=== PATIENT | male | born 1950 | race Caucasian/White ===

== ENCOUNTER 2018-06-23 10:19 | Outpatient (CLI) | payer MEDICARE, MEDICAID, SELFPAY ==
[2018-06-23 13:11] LABS: Anion Gap 7.4 mmol/L (3-11); BUN 21 mg/dL (7-18); CO2 28.6 mmol/L (21.0-32.0); CREATININE 1.34 mg/dL (0.70-1.30); Calcium 9.4 mg/dL (8.5-10.1); Chloride 103 mmol/L (98-107); Estimated GFR 53.17 (mL/min/1.73m2); Glucose 149 mg/dL (70-100); Potassium 4.2 mmol/L (3.5-5.1); Sodium 139 mmol/L (136-145)
[2018-06-23 13:24] LABS: Hemoglobin A1C 7.2 % (4.5-6.2)
== END 2018-06-23 10:39 ==
PROVIDERS: PCP Emergency Medicine; Visit Provider Emergency Medicine
DX: E11.9 Type 2 diabetes mellitus without complications (principal)
CPT/HCPCS: 36415; 80048; 83036

== ENCOUNTER 2020-05-23 14:00 | Outpatient (REF) | payer MEDICARE, SELFPAY ==
[2020-05-23 23:14] LABS: Hemoglobin A1C 7.1 % (<5.7)
[2020-05-23 23:19] LABS: Anion Gap 7.8 mmol/L (3-11); BUN 23 mg/dL (7-18); CO2 29.2 mmol/L (21.0-32.0); CREATININE 1.14 mg/dL (0.70-1.30); Calcium 10.2 mg/dL (8.5-10.1); Calculated LDL 38 mg/dL (<100); Chloride 105 mmol/L (98-107); Cholesterol 143 mg/dL (<200); Glucose 147 mg/dL (74-106); HDL Cholesterol 45 mg/dL (40-60); Potassium 4.1 mmol/L (3.5-5.1); Sodium 142 mmol/L (136-145); Triglyceride 300 mg/dL (<150)
== END 2020-05-23 14:20 ==
LOC: LBN 14:00
PROVIDERS: PCP Emergency Medicine; Visit Provider Emergency Medicine
DX: I10 Essential (primary) hypertension (principal); E11.9 Type 2 diabetes mellitus without complications
CPT/HCPCS: 80048; 80061; 83036

== ENCOUNTER → 2020-06-04 11:20 | Outpatient (BNVA) | payer MEDICARE, SELFPAY | PROVIDERS: PCP Emergency Medicine; Referring Provider Emergency Medicine; Visit Provider Surgery | DX: K42.9 Umbilical hernia without obstruction or gangrene (principal); K43.9 Ventral hernia without obstruction or gangrene; K40.90 Unilateral inguinal hernia, without obstruction or gangrene, not specified as recurrent; E11.9 Type 2 diabetes mellitus without complications; I10 Essential (primary) hypertension; Z79.84 Long term (current) use of oral hypoglycemic drugs | CPT/HCPCS: 99204 ==

== ENCOUNTER 2020-07-06 08:08 | Outpatient (CLI) | payer MEDICARE, SELFPAY ==
[2020-07-07 14:58] LABS: COVID-19 RT-PCR Result NEGATIVE (Negative)
== END 2020-07-06 08:28 ==
PROVIDERS: PCP Emergency Medicine; Visit Provider Surgery
DX: Z11.59 Encounter for screening for other viral diseases (principal); Z01.818 Encounter for other preprocedural examination
CPT/HCPCS: U0003

== ENCOUNTER 2020-07-10 06:09 | Day surgery (SDC) | payer MEDICARE, SELFPAY ==
[2020-07-10] VITALS (8 sets, daily range): BP systolic 101–114; BP diastolic 52–75; PULSE 75–83; RESP 16–22; TEMP 36.3–36.7; O2SAT 93–97
[2020-07-10] MEDS: Lactated Ringers 1,000 ML 80 ML IV (07:00)
--- NOTE | 2020-07-10 07:12 | HPE_ITS ---
Date of service: 07/10/20 Time of Service: 07:12 Assessment and Plan Assessment and plan (1) Incisional hernia: Status: Acute Assessment and plan: The ventral hernias will be repaired by a laparoscopic approach. The procedure and risks of infection, bleeding, seroma, injury to bowel, recurrence discussed. There is a possibility of converting to an open procedure. He should not lift more than 15# for 6 weeks postop. He was advised that smoking confers an increased risk of recurrence. He agrees to proceed. History of Present Illness Narrative: Presents for evaluation of several abdominal wall hernias. He is unsure of the duration but they have been there for years. No pain except when directly pressed. He is tolerating PO without N/V. Has daily BM. 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 No chest pain or SOB. Review of Systems All systems reviewed & are unremarkable except as noted in HPI and below PFSH Medical History Diabetes mellitus (01/21/13) Essential hypertension (10/31/13) Hernia Hyperlipidemia (01/21/13) Smoker Surgical History History of removal of cyst spine Hx of cholecystectomy Social History Smoking/Tobacco Use Status: Current every day Tobacco Type: cigarettes Alcohol Intake: current Alcohol Intake frequency: a few times a week Alcohol ty pe: beer Drug use: Never Substance use type: does not use Details: alcohol: t-3, 6 beers. tobacco: t-1 Do you feel safe at home: Yes Do you feel safe in your relationship?: Yes Meds Home Medications and Allergies Home Medications Medication Instructions Recorded Confirmed Type aspirin [Aspirin Low-Strength] 81 mg PO DAILY tab-cap 01/21/13 07/10/20 History mv,Ca,cqh-lnib-LG-lycopene 1 ea PO DAILY 01/21/13 07/10/20 History [Centrum Ultra Men's Tablet] Test Strips 1 ea MISCELLANEOUS once daily #100 05/31/13 07/10/20 Clinic strip blood-glucose meter [One Touch #1 kit 05/31/13 07/10/20 History Ultramini] lancets #100 ea 05/31/13 07/10/20 History blood sugar diagnostic #100 each 03/07/19 07/10/20 Rx hydrochlorothiazide 12.5 mg tablet 12.5 mg PO DAILY #90 tab-cap 10/19/19 07/10/20 Rx lisinopril 20 mg tablet 20 mg PO DAILY #90 tab-cap 10/19/19 07/10/20 Rx metformin 500 mg tablet 500 mg PO BID #180 tab-cap 10/19/19 07/10/20 Rx simvastatin 40 mg tablet 40 mg PO DAILY #90 tab-cap 04/13/20 07/10/20 Rx amlodipine 10 mg tablet 10 mg PO DAILY #90 tab 06/18/20 07/10/20 Rx Allergies Allergy/AdvReac Type Severity Reaction Status Date / Time aspirin AdvReac Mild upset Verified 07/10/20 06:24 stomach, 325 mg Exam Narrative Exam Narrative: Alert Lungs CTA Heart RRR Abdomen soft, not distended. Several ventral hernias present. Umbilical hernia with about 2cm fascial defect. Incisional hernias times two - one just above umbilicus, slightly to the right and a second epigastric defect. Partially reducible. Results Last Vital Signs Temp 98.1 F 07/10/20 06:30 Pulse 80 07/10/20 06:30 Resp 18 07/10/20 06:30 BP 114/75 07/10/20 06:30 Pulse Ox 97 07/10/20 06:30 COVID-19 Screening Have you,or household,traveled outside [place] in last 14 days?: No Had IN PERSON contact w/suspected or confirmed C-19 person: No
--- NOTE | 2020-07-10 07:34 | W.PM.DSUDISC ---
Discharge Plan Disposition Patient Disposition: HOME Condition: Good Discharge Details Reason For Visit: Laparoscopic incisional hernia repair with mesh Attending Provider: Marie Warren Primary Care Provider: Daniel Zuleta Home Meds and New Rx's Prescriptions: Continued aspirin [Aspirin Low-Strength] 81 MG tablet,chewable 81 mg PO DAILY RF: 0 Centrum Ultra Men's 1 EACH tablet 1 ea PO DAILY RF: 0 (DME) blood-glucose meter [OneTouch UltraMini] 1 EACH kit 1 ea Miscellaneous ONCE Qty: 1 RF: 0 (DME) lancets 1 EACH misc 1 ea Miscellaneous DAILY Qty: 100 RF: 0 TEST STRIPS 1 EACH strip 1 ea Miscellaneous once daily Qty: 100 RF: 3 (DME) OneTouch Verio test strips strip See Dose Instructions .ROUTE .MEDSUPPLY Qty: 100 RF: 1 lisinopril 20 mg tablet 20 mg PO DAILY Qty: 90 RF: 4 metformin 500 mg tablet 500 mg PO BID Qty: 180 RF: 4 hydrochlorothiazide 12.5 mg tablet 12.5 mg PO DAILY Qty: 90 RF: 4 simvastatin 40 mg tablet 40 mg PO DAILY Qty: 90 RF: 3 amlodipine 10 mg tablet 10 mg PO DAILY Qty: 90 RF: 3 Discharge Instructions Additional Instructions: The top bandage can be removed tomorrow. The steri strips will usually stick for about a week. When the edges start to curl up, they can be removed. It is okay to shower tomorrow, the water can run over the steri strips Do not swim or soak in a tub for two weeks Call for any concerns including fever, increased pain, vomiting, incision redness or drainage. Do not lift more than 15 pounds for six weeks. Walking and stairs are fine. Do not drive if on narcotic pain meds or if limited by pain. May use Tylenol alternating with ibuprofen for pain control. Ice is also an option. The maximum dose for Tylenol is 4000 mg/day. May use ibuprofen 800 mg every 8 hours as needed. If concerned about constipation, you may use a stool softener or milk of magnesia. Referrals: Marie Warren MD [ [facility] STAFF PHYSICIAN] - (Return next for a postop check) Macho Montana MD [ [facility] STAFF PHYSICIAN] - (1-2 weeks ) Activity:: Do not lift more than 15 pounds for 6 weeks Remove Dressings/Wound Care:: 24 hours Shower/Bathe:: 24 hours Diet:: As Tolerated Discharge Orders Discharge Orders: Discharge Order (Routine); Ordered 07/10/20 Ordered By: Marie Warren DS: Diagnosis Discharge Diagnosis (1) Incisional hernia: Status: Acute (2) Urinary retention: Status: Acute
[2020-07-10] MEDS: ceFAZolin 2 GM/50 ML BAG IVPB (07:36)
[2020-07-10] MEDS: Lidocaine 1% Multi-Dose 50 ML VIAL (08:03)
[2020-07-10] MEDS: Bupivacaine LIPOSOME/PF 133 MG/10 ML VIAL IJ (10:12)
[2020-07-10] MEDS: Normal Saline 20 ML VIAL (10:12)
[2020-07-10] MEDS: ACETAMINOPHEN 1,000 MG/100 ML BTL 400 MG IVPB (10:49)
[2020-07-10] MEDS: HYDROcodone 5/Acetaminophen 325 TAB PO (12:40)
--- NOTE | 2020-07-10 19:29 | W.PM.OP ---
Operative Note Operative Note DATE OF PROCEDURE: 07/10/20 PRE-OP DIAGNOSIS: Incisional hernia POST-OP DIAGNOSIS: same PROCEDURE: Laparoscopic incisional hernia repair with mesh SURGEON: Marie Warren SENIOR QC TECHNICIAN: Lynn Alvarado ANESTHESIA: GETA and local Indications: This 69-year-old man presents for repair of multiple abdominal wall hernias including one at the umbilicus and several incisional hernias at the site of laparoscopic cholecystectomy incisions. Procedure Description: The patient was placed supine on the operating table and after induction of general anesthetic had his abdomen prepped and draped sterilely. A small incision was made in the left upper quadrant and the abdomen entered under direct visualization with a 5mm port. A CO2 pneumoperitoneum was begun. Inspection of the abdomen revealed omental adhesions to the anterior abdominal wall as well as omentum stuck within the hernias. An additional left upper quadrant 5 mm port was placed and a 12 mm left midabdomen port placed. Using the LigaSure the adhesions were taken down and the hernias reduced. This required pressure externally to help reduce the fat as well as gentle traction internally and use of the LigaSure. As mentioned previously the hernias only contained omentum. Once the hernias were reduced it was apparent there were 4 fascial defects - one at the umbilicus, one just superior to this in a prior incision and then 2 in the epigastric region from a prior incisiona. The distance from the lower fascial edge of the lowest hernia to the upper fascial edge of the upper hernia was 19 cm. The 25.4 cm mesh was selected. I also had a 33 cm mesh but this would not fit in abdomen based on measurements. The laparoscopic echo mesh was selected. 0 Vicryl sutures were placed in 4 quadrants for use as anchoring sutures. The mesh was rolled up and placed in the abdomen through the 12 mm port. This was unrolled with the coated side down. The central balloon tubing was grasped with the suture passer at the midpoint of the fascial defects. The mesh was pulled up against the abdominal wall and the balloon inflated. The locations for the 4 anchoring sutures were marked. A small incision was made at each site after injecting local anesthetic and the O Vicryl sutures pulled up through the stab incisions. The sutures were then tightened so the mesh was against the abdominal wall and held in place with hemostats at the skin level. There was excellent coverage of the fascial defects. The absorbable tacker was used to place an outer ring of tacks. The deflated balloon was removed through the 12 port and a second row of tacks placed alternating with the first and more inner. The abdomen was inspected and there was good hemostasis. The 12 port was removed and the incision closed with an 0 PDS suture x2. All the Vicryl sutures were tied. The this was done after releasing the CO2. I then injected Exparel at all port sites which were closed with a 4 Monocryl subcuticular stitch or with Steri-Strips. He tolerated the procedure well and was stable to recovery. It should be noted that immediately upon entering the abdomen his bladder was very full despite having voided immediately before coming to the operating room. A Frederick catheter was inserted and 2700 cc collected by the end of the case. I discussed this with urology. Dr. Montana feels this is a chronic condition and the Frederick catheter can be removed at the end of the case with follow-up in the urology clinic.
== END 2020-07-10 13:45 | disposition home or self-care (01) ==
PROVIDERS: PCP Emergency Medicine; Visit Provider Surgery
PROC: 0WQF4ZZ Repair Abdominal Wall, Percutaneous Endoscopic Approach (ICD-10-PCS; CPT 49654; principal; 2020-07-10 07:30)
DX: K43.2 Incisional hernia without obstruction or gangrene (principal); I10 Essential (primary) hypertension; E11.9 Type 2 diabetes mellitus without complications
CPT/HCPCS: 49654; NC; C1781; J0131; J0690; J1100; J1885; J2405; J2704

== ENCOUNTER → 2020-07-19 09:58 | Outpatient (BNVA) | payer MEDICARE, SELFPAY | PROVIDERS: PCP Emergency Medicine; Referring Provider Emergency Medicine; Visit Provider Surgery | DX: Z48.815 Encounter for surgical aftercare following surgery on the digestive system (principal); E11.9 Type 2 diabetes mellitus without complications; I10 Essential (primary) hypertension ==

== ENCOUNTER → 2020-08-02 14:17 | Outpatient (BNVA) | payer MEDICARE, SELFPAY | PROVIDERS: PCP Emergency Medicine; Referring Provider Emergency Medicine; Visit Provider Urology | DX: R33.8 Other retention of urine (principal); E11.9 Type 2 diabetes mellitus without complications; I10 Essential (primary) hypertension; Z98.890 Other specified postprocedural states; Z79.84 Long term (current) use of oral hypoglycemic drugs | CPT/HCPCS: 99203; 99214 ==

== ENCOUNTER → 2020-09-11 12:52 | Outpatient (BNVA) | payer MEDICARE, SELFPAY | PROVIDERS: PCP Emergency Medicine; Referring Provider Emergency Medicine; Visit Provider Urology | DX: R33.8 Other retention of urine (principal); E11.9 Type 2 diabetes mellitus without complications; I10 Essential (primary) hypertension | CPT/HCPCS: 99213 ==

== ENCOUNTER → 2020-10-02 11:23 | Outpatient (BNVA) | payer MEDICARE, SELFPAY | PROVIDERS: PCP Emergency Medicine; Referring Provider Emergency Medicine; Visit Provider Surgery | DX: K40.90 Unilateral inguinal hernia, without obstruction or gangrene, not specified as recurrent (principal); Z98.890 Other specified postprocedural states; I10 Essential (primary) hypertension; E11.9 Type 2 diabetes mellitus without complications | CPT/HCPCS: 99213; 99214 ==

== ENCOUNTER → 2020-11-20 10:53 | Outpatient (BNVA) | payer MEDICARE, SELFPAY | PROVIDERS: PCP Emergency Medicine; Referring Provider Emergency Medicine; Visit Provider Surgery | DX: K40.90 Unilateral inguinal hernia, without obstruction or gangrene, not specified as recurrent (principal); I10 Essential (primary) hypertension; E11.9 Type 2 diabetes mellitus without complications | CPT/HCPCS: 99212; 99214 ==

== ENCOUNTER 2020-12-06 23:39 | Emergency (ER) | payer MEDICARE, SELFPAY ==
--- NOTE | 2020-12-06 23:38 | ED.GENADUL_ITS ---
Discharge Plan Disposition Patient Disposition: HOME Condition: Stable Discharge Details Clinical Impression: Right leg swelling Primary Care Provider: Daniel Zuleta ED Provider: Saurabh Sung Home Meds and New Rx's Prescriptions: Continued aspirin [Aspirin Low-Strength] 81 MG tablet,chewable 81 mg PO DAILY RF: 0 (DME) blood-glucose meter [OneTouch UltraMini] 1 EACH kit 1 ea Miscellaneous ONCE Qty: 1 RF: 0 (DME) lancets 1 EACH misc 1 ea Miscellaneous DAILY Qty: 100 RF: 0 TEST STRIPS 1 EACH strip 1 ea Miscellaneous once daily Qty: 100 RF: 3 (DME) OneTouch Verio test strips strip See Dose Instructions .ROUTE .MEDSUPPLY Qty: 100 RF: 1 lisinopril 20 mg tablet 20 mg PO DAILY Qty: 90 RF: 4 metformin 500 mg tablet 500 mg PO BID Qty: 180 RF: 4 hydrochlorothiazide 12.5 mg tablet 12.5 mg PO DAILY Qty: 90 RF: 4 simvastatin 40 mg tablet 40 mg PO DAILY Qty: 90 RF: 3 amlodipine 10 mg tablet 10 mg PO DAILY Qty: 90 RF: 3 Discharge Instructions Additional Instructions: Keep legs elevated. Radiology will contact you in the morning for appointment time to come in for ultrasound to look for blood clot. If any issues overnight especially chest pain, shortness of breath, other concerns return to ED. Will need follow-up with primary care next week regardless. Referrals: Daniel Zuleta, [Primary Care Provider] - Medical Decision Making Given the unilateral swelling must place DVT high on list of differential. Unfortunately no ultrasound available tonight. Will check labs including D- dimer, but likely home with dose of Eliquis and return in the morning for ultrasound. Blood count and platelets normal. Kidney function normal. D-dimer greater than 500 but when age-adjusted is technically negative. However, given that of the labs are fine with no contraindications to anticoagulation will dose with Eliquis tonight and have him return for ultrasound tomorrow morning. Requisition faxed to radiology. Instructions given to patient. Discharged home in good condition. Medical Records Medical records reviewed: Yes I reviewed the patient's medical records. Lab Data Lab results reviewed: Yes I reviewed the patient's lab results. HPI General Mode of arrival: EMS . Date/Time Provider Initiated Documentation: 12/06/20 23:43 . Limitations to Documentation: no limitations . Information obtained by: patient, EMS, RN notes reviewed and old records reviewed . HPI Narrative: Patient presents to ED with right lower extremity swelling. Patient reports that his leg has been swelling for about a week. Initially was minimal now swollen all the way up to the knee. It then pruritic around the ankle and you scratch the area quite a bit. There is no pain. Left ankle and foot are little swollen but that is baseline. No history of clots in the past. No fever, cough, shortness of breath, chest pain. Has become more and more swollen as each day goes by. Decided he needed it checked out tonight and came to ED. Related Data Home Medications Medication Instructions Recorded Confirmed aspirin [Aspirin Low-Strength] 81 mg PO DAILY tab-cap 01/21/13 12/06/20 blood-glucose meter [OneTouch #1 kit 05/31/13 11/20/20 UltraMini] lancets #100 ea 05/31/13 11/20/20 blood sugar diagnostic #100 each 03/07/19 11/20/20 hydrochlorothiazide 12.5 mg tablet 12.5 mg PO DAILY #90 tab-cap 10/19/19 12/06/20 lisinopril 20 mg tablet 20 mg PO DAILY #90 tab-cap 10/19/19 12/06/20 metformin 500 mg tablet 500 mg PO BID #180 tab-cap 10/19/19 12/06/20 simvastatin 40 mg tablet 40 mg PO DAILY #90 tab-cap 04/13/20 12/06/20 amlodipine 10 mg tablet 10 mg PO DAILY #90 tab 06/18/20 12/06/20 Previous Rx's Medication Instructions Recorded blood sugar diagnostic #100 each 03/07/19 hydrochlorothiazide 12.5 mg tablet 12.5 mg PO DAILY #90 tab-cap 10/19/19 lisinopril 20 mg tablet 20 mg PO DAILY #90 tab-cap 10/19/19 metformin 500 mg tablet 500 mg PO BID #180 tab-cap 10/19/19 simvastatin 40 mg tablet 40 mg PO DAILY #90 tab-cap 04/13/20 amlodipine 10 mg tablet 10 mg PO DAILY #90 tab 06/18/20 Allergies Allergy/AdvReac Type Severity Reaction Status Date / Time aspirin AdvReac Mild upset Verified 12/06/20 23:46 stomach, 325 mg Review of Systems Narrative: As documented in HPI otherwise negative as below. Const: no fever, chills, weakness Resp: no cough, SOB, pleuritic pain CV: no CP, diaphoresis, syncope GI: no abdominal pain, nausea, vomiting, diarrhea Neuro: no headache, numbness, focal weakness, confusion PFSH Medical History Diabetes mellitus (01/21/13) Essential hypertension (10/31/13) Hyperlipidemia (01/21/13) Incisional hernia Sciatica (11/16/15) Smoker Umbilical hernia Unspecified dental caries Urinary retention Surgical History History of removal of cyst spine Hx of cholecystectomy S/P laparoscopic hernia repair (~07/10/20) umbilical hernia- Dr. Warren Social History Smoking/Tobacco Use Status: Current every day Tobacco Type: cigarettes Smoking risk assessment performed?: Yes Alcohol Intake: current Alcohol Intake frequency: a few times a week Alcohol type: beer Drug use: Never Substance use type: does not use Details: alcohol: t-3, 6 beers. tobacco: t-1 Current gender identity: male Do you feel safe at home: Yes Do you feel safe in your relationship?: Yes Exam Narrative Exam Narrative: Const: WDWN elderly male in NAD. HEENT: NC/AT. Normal facial exam. Eyes: Normal conjunctiva and sclera. Neck: Supple. Trachea midline. Lungs: Normal respiratory effort. Lungs are clear. Cor: RRR without murmur/gallop. Good radial pulses. GI: Soft and NT.No guarding or rebound. Neuro: A+O x 3. Normal speech, mentation, gait. Cranial nerves II - XII grossly intact. No gross motor or sensory deficit. Ext: No C/C. RLE markedly swollen compared to LLE from the knee down. Mild edema to left ankle and foot. No erythema or tenderness. Dry excoriated skin around the right ankle and mild changes left lateral ankle. No groin adenopathy appreciated.
[2020-12-06 23:42] VITALS: BP 162/99; PULSE 108; RESP 20; TEMP 36.5; O2SAT 96
[2020-12-06 23:48] VITALS: RESP 16
[2020-12-07 00:14] LABS: Abs Immature Grans 0.03 10^3/uL (0.0-0.06); Absolute Basophil Count 0.07 10^3/uL (0.0-0.2); Absolute Eosinophil Count 0.47 10^3/uL (0.0-0.7); Absolute Lymphocyte Count 3.27 10^3/uL (1.2-3.4); Absolute Monocyte Count 1.06 10^3/uL (0.1-0.8); Basophils % 0.7; Eosinophils % 4.8; HCT 40.6 % (40.0-50.0); HGB 13.7 g/dL (13.5-17.5); Immature Grans % 0.3; Lymphocytes % 33.4; MCH 31.1 pg (27.0-33.0); MCHC 33.7 % (32.0-36.0); MCV 92.1 fL (80-95); MPV 9.5 fL (8.0-11.0); Monocytes % 10.8; Nucleated RBC 0 %; Platelet Count 281 10^3/uL (130-400); RBC 4.41 10^6/uL (4.36-5.78); RDW 12.9 % (11.8-14.1); RDW-SD 43.7 fL
[2020-12-07 00:25] LABS: ALT 74 U/L (16-63); AST 28 U/L (15-37); Albumin 4.3 g/dL (3.4-5.0); Alkaline Phosphatase 109 U/L (46-116); Anion Gap 13.4 mmol/L (3-11); BUN 16 mg/dL (7-18); Bilirubin, Total 0.4 mg/dL (0.2-1.0); CO2 25.6 mmol/L (21.0-32.0); CREATININE 1.3 mg/dL (0.70-1.30); Calcium 10.3 mg/dL (8.5-10.1); Chloride 97 mmol/L (98-107); Estimated GFR 54.73 (mL/min/1.73m2); Glucose 136 mg/dL (74-106); Potassium 3.8 mmol/L (3.5-5.1); Sodium 136 mmol/L (136-145); Total Protein 8.4 g/dL (6.4-8.2)
[2020-12-07 00:46] LABS: D-Dimer 566 ng/mlFEU (<500)
[2020-12-07 00:50] VITALS: BP 110/81; PULSE 80; RESP 14; O2SAT 95
[2020-12-07] MEDS: Apixaban 5 MG TAB 10 MG PO (01:03)
== END 2020-12-07 01:08 | disposition home or self-care (01) ==
PROVIDERS: Emergency Provider Emergency Medicine; PCP Emergency Medicine
DX: R60.0 Localized edema (principal)
CPT/HCPCS: 36415; 80053; 99283; 85025; 85379; 93971

== ENCOUNTER 2020-12-07 13:42 | Outpatient (CLI) | payer MEDICARE, SELFPAY ==
--- NOTE | 2020-12-07 | DI.US_ITS ---
EXAM: US LOWER EXTREMITY VENOUS RT CLINICAL HISTORY: RLE SWELLING. TECHNIQUE: Lower extremity venous ultrasound performed using grayscale, color-flow, and spectral Do ppler analysis. COMPARISON: No exams were available for comparison FINDINGS: The common femoral, femoral and popliteal veins demonstrate normal compressibility, augmentation, and color Doppler. The posterior tibial veins are patent. No saphenous vein thrombosis or other superfi cial venous thrombosis is seen. No hematoma or Cruz's cyst is seen. IMPRESSION: Negative right lower extremity ultrasound. No evidence of DVT. DATA REPOSITORY:
== END 2020-12-07 14:02 ==
PROVIDERS: PCP Emergency Medicine; Visit Provider Emergency Medicine
DX: R22.41 Localized swelling, mass and lump, right lower limb (principal)
CPT/HCPCS: 93971

== ENCOUNTER 2020-12-18 14:00 | Outpatient (REF) | payer MEDICARE, SELFPAY ==
[2020-12-18 21:34] LABS: Hemoglobin A1C 7.1 % (<5.7)
== END 2020-12-18 14:01 | disposition home or self-care (01) ==
LOC: LBN 14:00
PROVIDERS: PCP Emergency Medicine; Visit Provider Emergency Medicine
DX: E11.9 Type 2 diabetes mellitus without complications (principal)
CPT/HCPCS: 83036

== ENCOUNTER 2021-05-17 09:35 | Day surgery (SDC) | payer MEDICARE, SELFPAY ==
[2021-05-17] MEDS: Tropicam./Phenyleph. (1/2.5%) 5 ML BTL OD ×3 (10:09→10:24)
[2021-05-17 10:16] VITALS: BP 129/89; PULSE 77; RESP 16; TEMP 36.2; O2SAT 96
--- NOTE | 2021-05-17 10:35 | ANES.PREOP_ITS ---
General Info Date of Service Date Performed: 05/17/21 Height: 6 ft Weight: 86.5 kg Body Mass Index (BMI): 25.8 Surgical Procedure: Operation Date: 05/17/21 12:40 Proposed Procedures Side Surgeon p Cataract Extraction with IOL Implant Right Shane Aburto MD Meds Allergies and Home Medications Allergies Allergy/AdvReac Type Severity Reaction Status Date / Time aspirin AdvReac Mild upset Verified 05/17/21 10:12 stomach, 325 mg Home Medication Medication Instructions Recorded aspirin [Aspirin Low-Strength] 81 mg PO DAILY tab-cap 01/21/13 blood-glucose meter [OneTouch #1 kit 05/31/13 UltraMini] blood sugar diagnostic #100 each 12/11/20 blood-glucose meter #1 ea 12/17/20 lancets 28 gauge #100 ea 12/19/20 lisinopril 20 mg tablet 20 mg PO DAILY #90 tab-cap 01/16/21 metformin 500 mg tablet 500 mg PO BID #180 tab-cap 01/16/21 amlodipine 2.5 mg tablet 2.5 mg PO DAILY #90 tab 03/06/21 hydrochlorothiazide 25 mg tablet 25 mg PO QAM #90 tab 03/19/21 simvastatin 40 mg tablet 40 mg PO DAILY #90 tab-cap 04/15/21 Current Visit Medications: Current Medications Generic Name Dose Route Start Last Admin Trade Name Freq PRN Reason Stop Dose Admin Acetaminophen 1,000 mg 05/17/21 06:00 Acetaminophen 500 Mg Tab PO Q4H PRN PRN Miscellaneous Medication 0 ml 05/17/21 06:00 Prednisolone 1%, Moxifloxacin 0.5%, Nepafenac 0.1% 5ml Btl OD [facility] Miscellaneous Medication 0 ml 05/17/21 06:00 05/17/21 10:24 Tropicam./Phenyleph. (1/2.5%) 5 Ml Btl OD 1 drp [facility] Administration Tetracaine HCl 0 ml 05/17/21 06:00 Tetracaine 0.5% 4 Ml Btl OD [facility] PFSH Active Problems Active Problems: Problem Status Onset Code Diabetic retinopathy ~01/2021 E11.319 Right leg swelling M79.89 Left inguinal hernia K40.90 Colonoscopy refused 08/21/16 Z53.20 Diabetes mellitus 05/03/13 E11.9 Essential hypertension 10/31/13 I10 Hyperlipidemia 01/21/13 E78.5 Smoker F17.200 Medical History Medical History Diabetes mellitus (01/21/13) Essential hypertension (10/31/13) Hyperlipidemia (01/21/13) Incisional hernia Sciatica (11/16/15) Smoker Umbilical hernia Unspecified dental caries Urinary retention Surgical History Surgical History History of removal of cyst spine Hx of cholecystectomy S/P laparoscopic hernia repair (~07/10/20) umbilical hernia- Dr. Warren Tobacco Smoking/Tobacco Use Status: Current every day Tobacco Type: cigarettes Smoking cigarettes per day: 10 Alcohol Alcohol Intake: current Alcohol intake frequency: a few times a week Alcohol type: beer Substance Use Substance use: Never Substance use type: does not use Details: alcohol: t-3, 6 beers. tobacco: t-1 Vital Signs and Lab Results Vital Signs Most Recent Vital Signs in EMR: Most Recent Vital Signs Temp Pulse Resp BP Pulse Ox 36.2 C L 77 16 129/89 96 05/17/21 10:16 05/17/21 10:16 05/17/21 10:16 05/17/21 10:16 05/17/21 10:16 Point of Care Results Point of Care Results: Finger Stick Blood Glucose 146 05/17/21 10:28 Lab Results Blood Type / Crossmatch: No Data to Display Complete Blood Count: No Data to Display Complete Metabolic Panel: No Data to Display Liver Function Panel: No Data to Display Coagulation Panel: No Data to Display Cardiac Panel: No Data to Display Arterial Blood Gas: No Data to Display Venous Blood Gas: No Data to Display Pancreas Panel: No Data to Display Thyroid Panel: No Data to Display Infectious Disease: No Data to Display Blood Cultures: No Data to Display Toxicology Panel: No Data to Display Anesthesia Assessment and Plan Anesthesia History Personal History: No History of Anesthesia Complications Family History: No Family History of Anesthesia Complications Exercise Tolerance Exercise Tolerance: Metabolic Equivalents>4 Pertinent Negatives Pertinent Negatives: No Symptoms of GERD, No Major Cardiovascular Symptoms or Complaints, No Major Pulmonary Symptoms or Complaints and No History of CVA/TIA Cardiac & Pulmonary Exam Cardiac Exam: Normal S1/S2 Heart Sounds Pulmonary Exam: Clear Bilateral Breath Sounds Airway Exam Known Difficult Airway: No Mallampati Class: 2 Mouth Opening: Normal (> 3cm) Thyromental Distance: Greater than 3 cm Neck Range of Motion: Full ROM Neck Circumference: Normal Teeth Condition: Edentulous ASA Classification ASA Score: ASA 2 Emergency Case?: No NPO Status NPO Status: NPO Clears >2 hours, Solids >8 hours Anesthesia Plan Resuscitation Status: Full Code Anesthesia Technique: General Anesthesia Airway Planned: Natural Airway Monitors Used: Standard Monitors
[2021-05-17 10:38] VITALS: BMI 25.8
[2021-05-17] MEDS: Tetracaine 0.5% 4 ML BTL OD (11:28)
[2021-05-17] MEDS: Duovisc Viscoelastic System EACH 1 EACH (11:29)
[2021-05-17] MEDS: Balanced Salt Soln.-PLUS 500 ML BAG (11:29)
[2021-05-17] MEDS: Lidocaine 2% Jelly 6 ML SYR (11:30)
[2021-05-17] MEDS: Trypan Blue 0.06% 0.5 ML SYR (11:30)
[2021-05-17] MEDS: Lidocaine 1% Pres-Free 5 ML VIAL (11:30)
[2021-05-17] MEDS: Povidone-Iodine Ophth 30 ML BTL (11:32)
[2021-05-17 11:40] VITALS: BP 143/96; PULSE 82; RESP 18; TEMP 36.7; O2SAT 97
--- NOTE | 2021-05-17 11:42 | W.PM.DSUDISC ---
Discharge Plan Disposition Patient Disposition: HOME Condition: Good Discharge Details Attending Provider: Shane Aburto Primary Care Provider: Daniel Zuleta Home Meds and New Rx's Prescriptions: No Action amlodipine 2.5 mg tablet 2.5 mg PO DAILY Qty: 90 RF: 3 (DME) OneTouch Verio test strips Strip See Dose Instructions .ROUTE .MEDSUPPLY Qty: 100 RF: 3 aspirin [Aspirin Low-Strength] 81 MG tablet,chewable 81 mg PO DAILY RF: 0 (DME) blood-glucose meter [OneTouch UltraMini] 1 EACH kit 1 ea Miscellaneous ONCE Qty: 1 RF: 0 TEST STRIPS 1 EACH strip 1 ea Miscellaneous once daily Qty: 100 RF: 3 (DME) blood-glucose meter [OneTouch Verio Meter] Misc See Rx Instructions .ROUTE .MEDSUPPLY Qty: 1 RF: 1 (DME) lancets 28 gauge misc 1 ea Miscellaneous DAILY Qty: 100 RF: 4 lisinopril 20 mg tablet 20 mg PO DAILY Qty: 90 RF: 4 metformin 500 mg tablet 500 mg PO BID Qty: 180 RF: 4 hydrochlorothiazide 25 mg tablet 25 mg PO QAM Qty: 90 RF: 3 simvastatin 40 mg tablet 40 mg PO DAILY Qty: 90 RF: 3 Discharge Instructions Stand Alone Forms: Post-op Topical Cataract, Nicho Lozano (DSU) Discharge Orders Discharge Orders: Discharge Order (Routine); Ordered 05/17/21 Ordered By: Shane Aburto DS: Diagnosis Discharge Diagnosis (1) Nuclear sclerotic cataract of right eye: Status: Resolved (2) Posterior subcapsular age-related cataract, right eye: Status: Resolved
--- NOTE | 2021-05-17 11:44 | W.PM.OP ---
Date of service: 05/17/21 Time of Service: 11:44 Operative Note Operative Note DATE OF PROCEDURE: 05/17/21 PRE-OP DIAGNOSIS: Nuclear/posterior subcapsular cataract, right eye Poor red reflex, right eye secondary to cataract Exudative ARMD, right eye POST-OP DIAGNOSIS: same PROCEDURE: Cataract extraction using phacoemulsification with intraocular lens implantation, right eye, using capsular staining with Vision Blue SURGEON: Shane Aburto ANESTHESIA TYPE: Local By Surgeon and MAC Refer to Anesthesia Record PATHOLOGY: none sent COMPLICATIONS: None Patient was transported to: same day Patient's condition: stable Implants: Chap[employer] / [employer] Tecnis [id number] Indications: Progressive visual loss due to cataract, right eye Procedure Description: CATARACT SURGERY OPERATIVE REPORT PREOPERATIVE DIAGNOSIS: 1. Nuclear/posterior subcapsular cataract, right eye 2. Poor red reflex secondary to #1 POSTOPERATIVE DIAGNOSIS: Same OPERATION: 1. Cataract extraction using phacoemulsification with posterior chamber intraocular lens implant, right eye. 2. Capsular staining with Vision Blue IOL: IOL Generating Station Mechanic/Model: Chapito & Chapito / JOANNE Tecnis [id number] IOL Power: + 20.5 diopters IOL Serial Number: [id number] Optic Diameter: 6.0mm Haptic/Overall Diameter: 13.0mm PHACO INFO: Titi [employer] Vision System with OZil and Active Fluidics Cumulative Dispersed Energy (CDE): 12.13 seconds SURGEON: Shane Aburto MD, JOELLEN ANESTHESIA: Monitored Anesthesia Care (MAC), with local sub-tenon's anesthetic infiltration COMPLICATIONS: None SPECIMENS: None INDICATIONS FOR PROCEDURE: The patient is a 70-year-old gentleman with history of exudative ARMD of the right eye. He also has a significant nuclear and posterior subcapsular cataract. 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 PROCEDURE: The correct surgical eye was identified and marked as the right eye and the pupil was dilated in the preoperative area using mydriatics and cycloplegics. The dilated pupil size was 6.5 mm. He elected to proceed without oral sedation. The patient was brought to the operating room where cardiopulmonary monitoring was instituted and surgical time-out was performed, confirming the correct operative eye and IOL power. Topical anesthesia was administered and ophthalmic povidone-iodine 5% was instilled into the conjunctival fornices. Lidocaine gel was applied to the cornea and the ac-ocular area was prepped with Betadine 10% solution and draped in the usual sterile fashion for intraocular surgery, including an aperture drape. A Tegaderm transparent film dressing was cut in half and used to cover the lashes and lid margins. Care was taken to sequester the lashes and lid margins under the Tegaderm dressing. A lid speculum was placed between the lids of the operative eye and the Ana Lilia-Molly operating microscope was maneuvered into position. Petra scissors were then used to make a conjunctival buttonhole approximately 6mm posterior to the limbus in the inferonasal quadrant. Blunt dissection was carried out to expose bare sclera, and a blunt-tipped sub-tenon?s anesthesia cannula was introduced and passed posteriorly along the globe where non-preserved plain lidocaine was injected into posterior sub-Tenon?s space. A sideport knife was used to make a paracentesis port inferotemporally. Intraocular phenylephrine/lidocaine was injected into the anterior chamber. Air was injected into the anterior chamber, followed by Vision Blue, which was painted over the anterior capsule and then irrigated out with BSS. The anterior chamber was filled with viscoelastic. A 2.4mm keratome knife was used to create a half-thickness groove at the limbus and then to construct a three-plane near-clear corneal tunnel extending 2.0mm into clear cornea superiortemporally. A flap was raised on the anterior capsule and capsulorhexis forceps were used to complete a continuous curvilinear capsulorhexis of 5.5 mm. Balanced salt solution was then used to perform cortical cleaving hydrodissection and nuclear hydrodelineation until the lens could be freely rotated within the capsular bag. The lens nucleus was then disassembled and removed within the capsular bag and iris plane using phacoemulsification. Residual cortical material was removed using the I/A handpiece. The posterior capsule was carefully polished to remove as much residual lens epithelial cells as safely possible. The capsular bag was then inflated and the anterior chamber deepened with viscoelastic. The lens implant described above was inserted into the capsular bag using the JOANNE [place] Injector. A Kuglen hook was used to dial the IOL into position. Residual viscoelastic was then removed first from posterior to the IOL, then from the anterior chamber using the I/A handpiece. The lens implant was noted to center nicely within the capsular bag. The incisions were stromally hydrated, and the anterior chamber was reformed using BSS. Then 0.5cc of moxifloxacin 1.0mg/ml were injected into the capsular bag and anterior chamber. The incisions were checked with a Weck spear and found to be secure. Several drops of ophthalmic povidone-iodine 5% were then applied to the eye followed by two drops of Imprimis combination prednisolone/moxifloxacin/nepafenac solution. The drapes were removed and a clear plastic protective eye shield was placed over the eye. The patient was then returned to Same Day Surgery in stable condition.
--- NOTE | 2021-05-17 11:56 | W.ANESPOSTOP ---
Postoperative Evaluation Date, Time and Location Date Performed: 05/17/21 Time Performed: 11:41 Patient Location: Day Surgery Unit Vital Signs Most Recent Imported Vital Signs: Most Recent Vital Signs Temp Pulse Resp BP Pulse Ox 36.7 C 82 18 143/96 H 97 05/17/21 11:40 05/17/21 11:40 05/17/21 11:40 05/17/21 11:40 05/17/21 11:40 Pain Score Most Recent Pain Score: Most Recent Pain Score Pain Level 0 05/17/21 11:40 Assessment Mental Status: Awake (Alert & Oriented to Patient Baseline) Airway and Respiratory Function: Patent airway with normal (patient baseline) respiratory exam Cardiovascular Function: Hemodynamically Stable Hydration Status: Adequately Hydrated Nausea & Vomiting: No Nausea or Vomiting Pain: Pt. Denies Any Pain Peripheral Nerve Block: Patient did not receive a nerve block
--- NOTE | 2021-05-17 12:10 | W.ANESPOSTOP ---
Postoperative Evaluation Date, Time and Location Date Performed: 05/17/21 Time Performed: 11:42 Patient Location: Day Surgery Unit Vital Signs Most Recent Imported Vital Signs: Most Recent Vital Signs Temp Pulse Resp BP Pulse Ox 36.7 C 82 18 143/96 H 97 05/17/21 11:40 05/17/21 11:40 05/17/21 11:40 05/17/21 11:40 05/17/21 11:40 Most Recent Vital Signs Temp Pulse Resp BP Pulse Ox 36.7 C 82 18 143/96 H 97 05/17/21 11:40 05/17/21 11:40 05/17/21 11:40 05/17/21 11:40 05/17/21 11:40 Pain Score Most Recent Pain Score: Most Recent Pain Score Pain Level 0 05/17/21 11:40 Assessment Mental Status: Awake (Alert & Oriented to Patient Baseline) Airway and Respiratory Function: Patent airway with normal (patient baseline) respiratory exam Cardiovascular Function: Hemodynamically Stable Hydration Status: Adequately Hydrated Nausea & Vomiting: No Nausea or Vomiting Pain: Pt. Denies Any Pain Peripheral Nerve Block: Patient did not receive a nerve block
== END 2021-05-17 12:13 | disposition home or self-care (01) ==
PROVIDERS: PCP Emergency Medicine; Visit Provider Ophthalmology
PROC: (CPT 66984; principal; 2021-05-17 12:30)
DX: H25.041 Posterior subcapsular polar age-related cataract, right eye (principal); H35.3210 Exudative age-related macular degeneration, right eye, stage unspecified; E11.9 Type 2 diabetes mellitus without complications
CPT/HCPCS: 66984; V2632

== ENCOUNTER 2021-05-29 03:33 | Outpatient (CLI) | payer MEDICARE, MEDICAID, SELFPAY ==
[2021-05-29 13:05] LABS: Source Nasal/Nares
[2021-05-29 17:56] LABS: COVID-19 PCR Negative (Negative)
== END 2021-05-29 03:34 | disposition home or self-care (01) ==
LOC: LBO 03:33
PROVIDERS: PCP Emergency Medicine; Visit Provider Ophthalmology
DX: Z20.822 Contact with and (suspected) exposure to COVID-19 (principal); Z01.818 Encounter for other preprocedural examination
CPT/HCPCS: 87635

== ENCOUNTER 2021-05-31 06:30 | Day surgery (SDC) | payer MEDICARE, SELFPAY ==
[2021-05-31] MEDS: Tropicam./Phenyleph. (1/2.5%) 5 ML BTL OS ×3 (06:45→06:58)
[2021-05-31 06:47] VITALS: BP 149/88; PULSE 81; RESP 16; TEMP 36.4; O2SAT 99
--- NOTE | 2021-05-31 07:08 | ANES.PREOP_ITS ---
General Info Date of Service Date Performed: 05/31/21 Height: 6 ft Weight: 88.2 kg Body Mass Index (BMI): 26.4 Surgical Procedure: Operation Date: 05/31/21 07:40 Proposed Procedures Side Surgeon p Cataract Extraction with IOL Implant possible Avastin Injection Left Shane Aburto MD Meds Allergies and Home Medications Allergies Allergy/AdvReac Type Severity Reaction Status Date / Time aspirin AdvReac Mild upset Verified 05/31/21 06:41 stomach, 325 mg Home Medication Medication Instructions Recorded aspirin [Aspirin Low-Strength] 81 mg PO DAILY tab-cap 01/21/13 blood-glucose meter [OneTouch #1 kit 05/31/13 UltraMini] blood sugar diagnostic #100 each 12/11/20 blood-glucose meter #1 ea 12/17/20 lancets 28 gauge #100 ea 12/19/20 lisinopril 20 mg tablet 20 mg PO DAILY #90 tab-cap 01/16/21 metformin 500 mg tablet 500 mg PO BID #180 tab-cap 01/16/21 amlodipine 2.5 mg tablet 2.5 mg PO DAILY #90 tab 03/06/21 hydrochlorothiazide 25 mg tablet 25 mg PO QAM #90 tab 03/19/21 simvastatin 40 mg tablet 40 mg PO DAILY #90 tab-cap 04/15/21 Current Visit Medications: Current Medications Generic Name Dose Route Start Last Admin Trade Name Freq PRN Reason Stop Dose Admin Acetaminophen 1,000 mg 05/31/21 06:00 Acetaminophen 500 Mg Tab PO Q4H PRN PRN Miscellaneous Medication 0 ml 05/31/21 06:00 Prednisolone 1%, Moxifloxacin 0.5%, Nepafenac 0.1% 5ml Btl OS DIRECTED [facility] Miscellaneous Medication 0 ml 05/31/21 06:00 05/31/21 06:58 Tropicam./Phenyleph. (1/2.5%) 5 Ml Btl OS 1 drp DIRECTED FAVIO Administration Tetracaine HCl 0 ml 05/31/21 06:00 Tetracaine 0.5% 4 Ml Btl OS DIRECTED [facility] PFSH Active Problems Active Problems: Problem Status Onset Code Colonoscopy refused 08/21/16 Z53.20 Left inguinal hernia K40.90 Right leg swelling M79.89 Diabetic retinopathy ~01/2021 E11.319 Nuclear sclerotic cataract of right eye H25.11 Posterior subcapsular age-related cataract, right eye H25.041 Nuclear sclerotic cataract of left eye H25.12 Cortical cataract of left eye H26.9 Diabetes mellitus 01/21/13 E11.9 Essential hypertension 10/31/13 I10 Hyperlipidemia 01/21/13 E78.5 Smoker F17.200 Medical History Medical History Diabetes mellitus (01/21/13) Essential hypertension (10/31/13) Hyperlipidemia (01/21/13) Incisional hernia Sciatica (11/16/15) Smoker Umbilical hernia Unspecified dental caries Urinary retention Surgical History Surgical History (Updated 05/31/21 @ 06:41 by Carmen Mireles) History of removal of cyst spine Hx of cataract surgery Hx of cholecystectomy S/P laparoscopic hernia repair (~07/10/20) umbilical hernia- Dr. Warren Tobacco Smoking/Tobacco Use Status: Current every day Tobacco Type: cigarettes Smoking cigarettes per day: 10 Alcohol Alcohol Intake: current Alcohol intake frequency: a few times a week Alcohol type: beer Substance Use Substance use: Never Substance use type: does not use Details: alcohol: t-3. tobacco: 3 today Vital Signs and Lab Results Vital Signs Most Recent Vital Signs in EMR: Most Recent Vital Signs Temp Pulse Resp BP Pulse Ox 36.4 C L 81 16 149/88 H 99 05/31/21 06:47 05/31/21 06:47 05/31/21 06:47 05/31/21 06:47 05/31/21 06:47 Point of Care Results Point of Care Results: Finger Stick Blood Glucose 115 05/31/21 06:55 Lab Results Blood Type / Crossmatch: No Data to Display Complete Blood Count: No Data to Display Complete Metabolic Panel: No Data to Display Liver Function Panel: No Data to Display Coagulation Panel: No Data to Display Cardiac Panel: No Data to Display Arterial Blood Gas: No Data to Display Venous Blood Gas: No Data to Display Pancreas Panel: No Data to Display Thyroid Panel: No Data to Display Infectious Disease: Coronavirus (COVID-19)(PCR) Negative (Negative) 05/29/21 11:02 05/29/21 Coronavirus 2019 Source Nasal/Nares 05/29/21 11:02 05/29/21 Blood Cultures: No Data to Display Toxicology Panel: No Data to Display Anesthesia Assessment and Plan Anesthesia History Personal History: No History of Anesthesia Complications Family History: No Family History of Anesthesia Complications Exercise Tolerance Exercise Tolerance: Metabolic Equivalents>4 Pertinent Negatives Pertinent Negatives: No Symptoms of GERD, No Major Cardiovascular Symptoms or Complaints and No Major Pulmonary Symptoms or Complaints Cardiac & Pulmonary Exam Cardiac Exam: Normal S1/S2 Heart Sounds Pulmonary Exam: Clear Bilateral Breath Sounds Airway Exam Known Difficult Airway: No Mallampati Class: 2 Mouth Opening: Normal (> 3cm) Thyromental Distance: Greater than 3 cm Neck Range of Motion: Full ROM Neck Circumference: Normal Teeth Condition: Edentulous ASA Classification ASA Score: ASA 2 Emergency Case?: No NPO Status NPO Status: NPO Clears >2 hours, Solids >8 hours Anesthesia Plan Resuscitation Status: Full Code Anesthesia Technique: MAC Anesthesia Airway Planned: Natural Airway Monitors Used: Standard Monitors
[2021-05-31 07:15] VITALS: BMI 26.4
[2021-05-31] MEDS: Tetracaine 0.5% 4 ML BTL OS (07:28)
[2021-05-31] MEDS: Povidone-Iodine Ophth 30 ML BTL (07:28)
[2021-05-31] MEDS: Lidocaine 2% Jelly 6 ML SYR (07:28)
[2021-05-31] MEDS: Lidocaine 1% Pres-Free 5 ML VIAL (07:30)
[2021-05-31] MEDS: Balanced Salt Soln.-PLUS 500 ML BAG (07:30)
[2021-05-31] MEDS: Duovisc Viscoelastic System EACH 1 EACH (07:30)
[2021-05-31 07:53] VITALS: BP 148/84; PULSE 75; RESP 18; TEMP 36.5; O2SAT 96
--- NOTE | 2021-05-31 07:57 | W.PM.DSUDISC ---
Discharge Plan Disposition Patient Disposition: HOME Condition: Good Discharge Details Attending Provider: Shane Aburto Primary Care Provider: Daniel Zuleta Home Meds and New Rx's Prescriptions: No Action amlodipine 2.5 mg tablet 2.5 mg PO DAILY Qty: 90 RF: 3 (DME) OneTouch Verio test strips Strip See Dose Instructions .ROUTE .MEDSUPPLY Qty: 100 RF: 3 aspirin [Aspirin Low-Strength] 81 MG tablet,chewable 81 mg PO DAILY RF: 0 (DME) blood-glucose meter [OneTouch UltraMini] 1 EACH kit 1 ea Miscellaneous ONCE Qty: 1 RF: 0 TEST STRIPS 1 EACH strip 1 ea Miscellaneous once daily Qty: 100 RF: 3 (DME) blood-glucose meter [OneTouch Verio Meter] Misc See Rx Instructions .ROUTE .MEDSUPPLY Qty: 1 RF: 1 (DME) lancets 28 gauge misc 1 ea Miscellaneous DAILY Qty: 100 RF: 4 lisinopril 20 mg tablet 20 mg PO DAILY Qty: 90 RF: 4 metformin 500 mg tablet 500 mg PO BID Qty: 180 RF: 4 hydrochlorothiazide 25 mg tablet 25 mg PO QAM Qty: 90 RF: 3 simvastatin 40 mg tablet 40 mg PO DAILY Qty: 90 RF: 3 Discharge Instructions Stand Alone Forms: Post-op Topical Cataract, Nicho Lozano (DSU) Discharge Orders Discharge Orders: Discharge Order (Routine); Ordered 05/31/21 Ordered By: Shane Aburto DS: Diagnosis Discharge Diagnosis (1) Nuclear sclerotic cataract of left eye: Status: Resolved (2) Cortical cataract of left eye: Status: Resolved
--- NOTE | 2021-05-31 07:58 | W.PM.OP ---
Date of service: 05/31/21 Time of Service: 07:58 Operative Note Operative Note DATE OF PROCEDURE: 05/31/21 PRE-OP DIAGNOSIS: Nuclear/cortical cataract, left eye POST-OP DIAGNOSIS: same PROCEDURE: Cataract extraction using phacoemulsification with intraocular lens implant, left eye SURGEON: Shane Aburto ANESTHESIA TYPE: Local By Surgeon and MAC Refer to Anesthesia Record PATHOLOGY: none sent COMPLICATIONS: None Patient was transported to: same day Patient's condition: stable Implants: Chap[employer] and Chap[employer] / [employer] Tecnis [id number] Indications: Progressive decreased vision due to cataract, left eye, with poor red reflex Procedure Description: CATARACT SURGERY OPERATIVE REPORT PREOPERATIVE DIAGNOSIS: 1. Nuclear/cortical cataract, left eye POSTOPERATIVE DIAGNOSIS: Same OPERATION: 1. Cataract extraction using phacoemulsification with posterior chamber intraocular lens implant, left eye. IOL: IOL Piped Buttonhole Machine Operator/Model: Chapito & Chapito / JOANNE Tecnis [id number] IOL Power: + 19.5 diopters IOL Serial Number: [id number] Optic Diameter: 6.0 mm Haptic/Overall Diameter: 13.0 mm PHACO INFO: Titi [employer]urion Vision System with OZil and Active Fluidics Cumulative Dispersed Energy (CDE): 3.56 seconds SURGEON: Shane Aburto MD, JOELLEN ANESTHESIA: Monitored A [facility] (MAC), with local sub-tenon's anesthetic infiltration COMPLICATIONS: None SPECIMENS: None INDICATIONS FOR PROCEDURE: The patient is a 70-year-old gentleman with history of exudative ARMD of the right eye who has developed bilateral nuclear and cortical cataract. He has already undergone cataract surgery of the right eye. He now presents cataract surgery of his better left eye. PROCEDURE: The correct surgical eye was identified and marked as the left eye and the pupil was dilated in the preoperative area using mydriatics and cycloplegics. The dilated pupil size was 7.0 mm. He elected to proceed without oral sedation. The patient was brought to the operating room where cardiopulmonary monitoring was instituted and surgical time-out was performed, confirming the correct operative eye and IOL power. Topical anesthesia was administered and ophthalmic povidone-iodine 5% was instilled into the conjunctival fornices. Lidocaine gel was applied to the cornea and the ac-ocular area was prepped with Betadine 10% solution and draped in the usual sterile fashion for intraocular surgery, including an aperture drape. A Tegaderm transparent film dressing was cut in half and used to cover the lashes and lid margins. Care was taken to sequester the lashes and lid margins under the Tegaderm dressing. A lid speculum was placed between the lids of the operative eye and the Ana Lilia-Molly operating microscope was maneuvered into position. Petra scissors were then used to make a conjunctival buttonhole approximately 6mm posterior to the limbus in the inferonasal quadrant. Blunt dissection was carried out to expose bare sclera, and a blunt-tipped sub-tenon?s anesthesia cannula was introduced and passed posteriorly along the globe where non-preserved plain lidocaine was injected into posterior sub-Tenon?s space. A sideport knife was used to make a paracentesis port superiorly/superiortemporally. Intraocular phenylephrine/lidocaine was injected int the anterior chamber.. The anterior chamber was filled with viscoelastic. A 2.4mm keratome knife was used to create a half-thickness groove at the limbus and then to construct a three-plane near-clear corneal tunnel extending 2.0mm into clear cornea at the 3:00 position. A flap was raised on the anterior capsule and capsulorhexis forceps were used to complete a continuous curvilinear capsulorhexis of 5.0 mm. Balanced salt solution was then used to perform cortical cleaving hydrodissection and nuclear hydrodelineation until the lens could be freely rotated within the capsular bag. The lens nucleus was then disassembled and removed within the capsular bag and iris plane using phacoemulsification. Residual cortical material was removed using the 45-degree angled silicone I/A tip with 0.3mm port. The posterior capsule was carefully polished to remove as much residual lens epithelial cells as safely possible. The capsular bag was then inflated and the anterior chamber deepened with viscoelastic. The lens implant described above was inserted into the capsular bag using the JOANNE [place] Injector. A Kuglen hook was used to dial the IOL into position. Residual viscoelastic was then removed first from posterior to the IOL, then from the anterior chamber using the I/A handpiece. The lens implant was noted to center nicely within the capsular bag. The incisions were stromally hydrated, and the anterior chamber was reformed using BSS. Then 0.5cc of moxifloxacin 1.0mg/ml were injected into the capsular bag and anterior chamber. The incisions were checked with a Weck spear and found to be secure. Several drops of ophthalmic povidone-iodine 5% were then applied to the eye followed by two drops of Imprimis combination prednisolone/moxifloxacin/nepafenac solution. The drapes were removed and a clear plastic protective eye shield was placed over the eye. The patient was then returned to Same Day Surgery in stable condition.
--- NOTE | 2021-05-31 08:28 | W.ANESPOSTOP ---
Postoperative Evaluation Date, Time and Location Date Performed: 05/31/21 Time Performed: 08:07 Patient Location: Day Surgery Unit Vital Signs Most Recent Imported Vital Signs: Most Recent Vital Signs Temp Pulse Resp BP Pulse Ox 36.5 C 75 18 148/84 H 96 05/31/21 07:53 05/31/21 07:53 05/31/21 07:53 05/31/21 07:53 05/31/21 07:53 Pain Score Most Recent Pain Score: Most Recent Pain Score Pain Level 0 05/31/21 07:53 Assessment Mental Status: Awake (Alert & Oriented to Patient Baseline) Airway and Respiratory Function: Patent airway with normal (patient baseline) respiratory exam Cardiovascular Function: Hemodynamically Stable Hydration Status: Adequately Hydrated Nausea & Vomiting: No Nausea or Vomiting Pain: Pt. Denies Any Pain Peripheral Nerve Block: Patient did not receive a nerve block
== END 2021-05-31 08:18 | disposition home or self-care (01) ==
PROVIDERS: PCP Emergency Medicine; Visit Provider Ophthalmology
PROC: (CPT 66984; principal; 2021-05-31 07:30)
DX: H25.12 Age-related nuclear cataract, left eye (principal); I10 Essential (primary) hypertension; E11.319 Type 2 diabetes mellitus with unspecified diabetic retinopathy without macular edema
CPT/HCPCS: 66984; V2632

== ENCOUNTER 2021-12-03 19:59 | Outpatient (REF) | payer MEDICARE, SELFPAY ==
[2021-12-03 20:06] LABS: Anion Gap 10.7 mmol/L (3-11); BUN 19 mg/dL (7-18); CO2 26.3 mmol/L (21.0-32.0); CREATININE 1.2 mg/dL (0.70-1.30); Calcium 10.4 mg/dL (8.5-10.1); Chloride 102 mmol/L (98-107); Estimated GFR 59.86 (mL/min/1.73m2); Glucose 177 mg/dL (74-106); Hemoglobin A1C 7.6 % (<5.7); Sodium 139 mmol/L (136-145)
[2021-12-04 18:22] LABS: PSA, Screening 1.4 ng/mL (0.0-6.5)
== END 2021-12-03 20:00 | disposition home or self-care (01) ==
LOC: LBN 19:59
PROVIDERS: PCP Family Medicine; Visit Provider Emergency Medicine
DX: I10 Essential (primary) hypertension (principal); E11.9 Type 2 diabetes mellitus without complications; Z12.5 Encounter for screening for malignant neoplasm of prostate
CPT/HCPCS: 80048; 84153; 83036

== ENCOUNTER → 2021-12-20 09:59 | Outpatient (BNVA) | payer MEDICARE, SELFPAY | PROVIDERS: PCP Family Medicine; Referring Provider Emergency Medicine; Visit Provider Physical Therapy Assistant | DX: Z12.11 Encounter for screening for malignant neoplasm of colon (principal); I10 Essential (primary) hypertension; E11.319 Type 2 diabetes mellitus with unspecified diabetic retinopathy without macular edema ==

== ENCOUNTER 2021-12-27 02:16 | Outpatient (CLI) | payer MEDICARE, SELFPAY ==
[2021-12-27 12:04] LABS: Source Nasal/Nares
[2021-12-27 14:26] LABS: COVID-19 PCR Negative (Negative)
== END 2021-12-27 02:17 | disposition home or self-care (01) ==
LOC: LBO 02:17
PROVIDERS: PCP Family Medicine; Visit Provider Surgery
DX: Z20.822 Contact with and (suspected) exposure to COVID-19 (principal); Z01.818 Encounter for other preprocedural examination
CPT/HCPCS: 87635; U0005

== ENCOUNTER 2021-12-27 02:17 | Outpatient (CLI) | payer MEDICARE, SELFPAY | END 2021-12-27 02:18 | disposition home or self-care (01) | LOC: LBO 02:17 | PROVIDERS: PCP Family Medicine; Visit Provider Surgery ==

== ENCOUNTER 2021-12-30 11:02 | Day surgery (SDC) | payer MEDICARE, MEDICAID, SELFPAY ==
--- NOTE | 2021-12-30 06:36 | W.COLOREPORT ---
Colonoscopy Report Date of procedure: 12/30/21 Pre-op diagnosis general: Colon Cancer Screening Post-op diagnosis procedure note: other (polyps and severe diverticulosis) Procedure: Colonoscopy with polypectomy Surgeon: Vanita Yuan Anesthesia Type: General:No Airway Estimated blood loss (mL): 3 Pathology: other (ascending, transverse, descending, sigmoid and rectal polyps) Complications: None Disposition: same day Indications: The patient is here for Colonoscopy pre-op. He has no family history of colon cancer. He has not had any bowel habit changes. -Discussed colonoscopy bowel prep as well as the procedure. Discussed possible complications of the procedure to include bleeding, pain, perforation, missed small lesion/polyp, sore throat, aspiration and adverse reaction to the medications. Questions were answered to patient?s satisfaction. No guarantees were implied or given. Prep: Miralax/Dulcolax Procedure Start Time: 12:18 Procedure End Time: 12:58 Retraction Time: 20 minutes Findings: Multiple polyps and severe diverticulosis of the descending and sigmoid colon Procedure Description: After informed consent was obtained the patient was taken to the procedure room and placed in a left decubitous position. Monitors were applied and a time out was done. The patients name, date of , procedure, allergies to medications and metal in their body was reviewed. The patient was then sedated. Once sedated and comfortable a rectal exam was done. External exam was normal. Internal exam revealed a normal sphincter tone and no palpable masses. The prostate felt smooth and enlarged. The scope was then introduced and retro-flexed. No internal hemorrhoids, polyps or masses were identified on retro-flexion. The scope was then advanced to the cecum with difficulty due to severe sigmoid and descending colon diverticulosis as well as a tortous colon. The ileocecal vlave and appendiceal orifice were identified. The prep was adequate. The scope was then slowly retracted over 20 minutes back into the rectum. Polyps were removed with cold forceps in the ascending colon x1, transverse colon x1, descending colon x1, sigmoid colon x4 and rectum x6. There was severe descending and sigmoid diverticulosis noted. The scope was removed and the patient was woken up and taken back to Same day surgery in stable condition. The patient tolerated the procedure well and there were no immediate complications. Follow up: The patient should follow up prn unless they develop changes in bowel habits or other new gastrointestinal complaints.
--- NOTE | 2021-12-30 06:38 | W.PM.DSUDISC ---
Discharge Plan Disposition Patient Disposition: HOME Condition: Good Discharge Details Reason For Visit: Colonoscopy Attending Provider: Vanita Yuan Primary Care Provider: Lacho Rodney Home Meds and New Rx's Prescriptions: Continued amlodipine 5 mg tablet 5 mg PO DAILY Qty: 90 3RF ICaps AREDS 7,160-113-100 [id number] tablet,delayed release (DR/EC) 1 tab PO ONCE 0RF (DME) OneTouch Verio test strips Strip See Dose Instructions .ROUTE .MEDSUPPLY Qty: 100 3RF Dose Instruction: As directed Rx Instructions: once daily; E11.9 aspirin [Aspirin Low-Strength] 81 MG tablet,chewable 81 mg PO DAILY 0RF (DME) blood-glucose meter [J. HilburnTouch UltraMini] 1 EACH kit 1 ea Miscellaneous ONCE Qty: 1 0RF Rx Instructions: Dx 250.00 TEST STRIPS 1 EACH strip 1 ea Miscellaneous once daily Qty: 100 3RF Rx Instructions: dx 250.00 (DME) blood-glucose meter [OneTouch Verio Meter] Misc See Rx Instructions .ROUTE .MEDSUPPLY Qty: 1 1RF Rx Instructions: test bid (DME) lancets 28 gauge misc 1 ea Miscellaneous DAILY Qty: 100 4RF Rx Instructions: DX 250.00 lisinopril 20 mg tablet 20 mg PO DAILY Qty: 90 4RF metformin 500 mg tablet 500 mg PO BID Qty: 180 4RF hydrochlorothiazide 25 mg tablet 25 mg PO QAM Qty: 90 3RF simvastatin 40 mg tablet 40 mg PO DAILY Qty: 90 3RF Discontinued bisacodyl [Dulcolax (bisacodyl)] 5 mg tablet,delayed release (DR/EC) 5 mg PO ONCE Qty: 4 0RF Rx Instructions: Take according to provider's instructions for colonoscopy prep. polyethylene glycol 3350 17 gram/dose powder 17 g PO ONCE Qty: 238 0RF Rx Instructions: To be taken as directed by prescriber's office for colonoscopy prep. Discharge Instructions Instructions: Colorectal Polyps (DC), Diverticulosis (DC) Additional Instructions: Findings: Multiple polyps Severe diverticulosis Follow up: depedns on final pathology results Please call if you develop: fevers >101.5 Nausea or Vomiting Abdominal pain that is not transient Rectal bleeding that is more then a tbsp A hard abdomen and inability to pass gas DAY SURGERY UNIT POST ENDOSCOPY INSTRUCTIONS Instructions for everyone who is given Anesthesia: For your safety, please do the following for the next 24 Hours: a. Do not drive or operate dangerous equipment b. Do not drink alcohol beverages or use any recreational drugs for the first 24 hours or while taking pain medications. The medications in your body may have a reaction that can be dangerous. c. Do not make any important decisions or sign any important papers 1. Generally there are no restrictions on your activity after a day or so has gone by, but you may feel a bit fatigued for a few days. 2. After you arrive home you may have a light meal and return to a normal diet as you can tolerate it without feeling sick to your stomach. 3. After surgery, you may feel pain or discomfort. This should be only transient, but if it persists please contact your doctor. 4. If there are any questions regarding the findings of your procedure, please feel free to contact your doctor. 6. If you are unable to contact your doctor with a problem, contact the hospital at [phone]. 7. Continue all your regular medications unless directed otherwise. I understand the above instructions and have no questions. Signature of Patient or Responsible Adult Escort Date/Time Name of Responsible Adult Escort Signature of Nurse Date/Time Activity:: Activity as Tolerated Diet:: high fiber diet Discharge Orders Discharge Orders: Discharge Order (Routine); Ordered 12/30/21 Ordered By: Vanita Yuan
[2021-12-30 11:29] VITALS: BP 160/90; PULSE 90; RESP 20; TEMP 36.6; O2SAT 96
--- NOTE | 2021-12-30 11:52 | W.ANESPRE ---
General Info Date of Service Date Performed: 12/30/21 Height: 6 ft Weight: 87.2 kg Body Mass Index (BMI): 26.0 Surgical Procedure: Operation Date: 12/30/21 11:20 Proposed Procedure Side Surgeon p Colonoscopy Vanita Yuan MD Meds Allergies and Home Medications Allergies Allergy/AdvReac Type Severity Reaction Status Date / Time aspirin AdvReac Mild upset Verified 12/30/21 11:22 stomach, 325 mg Home Medication Medication Instructions Recorded aspirin 81 mg chewable tablet 81 mg PO DAILY tab-cap 01/21/13 (Aspirin Low-Strength) blood-glucose meter (OneTouch #1 05/31/13 UltraMini) blood sugar diagnostic (OneTouch #100 each 12/11/20 Verio test strips) blood-glucose meter (OneTouch #1 ea 12/17/20 Verio Meter) lancets 28 gauge #100 ea 12/19/20 lisinopril 20 mg tablet 20 mg PO DAILY #90 tab-cap 01/16/21 metformin 500 mg tablet 500 mg PO BID #180 tab-cap 01/16/21 hydrochlorothiazide 25 mg tablet 25 mg PO QAM #90 tab 03/19/21 simvastatin 40 mg tablet 40 mg PO DAILY #90 tab-cap 04/15/21 amlodipine 5 mg tablet 5 mg PO DAILY #90 tab 12/03/21 bisacodyl 5 mg tablet,delayed 5 mg PO ONCE #4 tab 12/20/21 release (Dulcolax (bisacodyl)) polyethylene glycol 3350 17 17 g PO ONCE #238 g 12/20/21 gram/dose oral powder vit A 7,160 unit-C 113 mg-E 100 1 tab PO ONCE 12/20/21 [id number] tablet,delayed rel. (ICaps AREDS) Current Visit Medications: Current Medications Generic Name Dose Route Start Last Admin Trade Name Freq PRN Reason Stop Dose Admin Hyoscyamine Sulfate 0.125 mg 12/30/21 06:39 Hyoscyamine 0.125 Mg Sl/Oral/Chew SL DIRECTED PRN Ringer's Solution 1,000 mls @ 80 mls/hr 12/30/21 06:00 IV 01/26/22 23:59 INFUSION [facility] IV Miscellaneous Supplies 1 each 12/30/21 06:00 Iv Access IV 05/08/22 23:59 DIRECTED [facility] Ondansetron HCl 4 mg 12/30/21 06:39 Ondansetron 4 Mg/2 Ml Vial IVP Q4H PRN PRN Nausea / Vomiting Sodium Chloride 0 ml 12/30/21 06:00 Normal Saline Flush 10 Ml Syr IV 01/26/22 23:59 PRN PRN Sodium Chloride 0 ml 12/30/21 06:00 Normal Saline 10 Ml Vial IJ 01/26/22 23:59 DIRECTED PRN Sterile Water 0 ml 12/30/21 06:00 Water,Injection,Sterile 10 Ml Vial IJ 01/26/22 23:59 DIRECTED PRN PFSH Active Problems Active Problems: Problem Status Onset Code Colonoscopy refused 08/21/16 Z53.20 Left inguinal hernia K40.90 Right leg swelling M79.89 Diabetic retinopathy ~01/2021 E11.319 Nuclear sclerotic cataract of right eye H25.11 Posterior subcapsular age-related cataract, 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 had 3 cigarettes this am. pt reports drinking x2 small glasses of H20 this am. Surgical History Surgical History History of removal of cyst spine Hx of cataract surgery Hx of cholecystectomy S/P laparoscopic hernia repair (~07/10/20) umbilical hernia- Dr. Warren Tobacco Smoking/Tobacco Use Status: Current every day Tobacco Type: cigarettes Smoking cigarettes per day: 20 Alcohol Alcohol Intake: current Alcohol intake frequency: a few times a week Alcohol type: beer Details: Average of 8 beers/day Substance Use Substance use: Never Substance use type: does not use Vital Signs and Lab Results Vital Signs Most Recent Vital Signs in EMR: Most Recent Vital Signs Temp Pulse Resp BP Pulse Ox 36.6 C 90 20 160/90 H 96 12/30/21 11:29 12/30/21 11:29 12/30/21 11:29 12/30/21 11:29 12/30/21 11:29 Point of Care Results Point of Care Results: Finger Stick Blood Glucose 180 12/30/21 11:46 Lab Results Blood Type / Crossmatch: No Data to Display Complete Blood Count: No Data to Display Complete Metabolic Panel: Sodium Level 139 mmol/L (136-145) 12/03/21 13:30 12/03/21 Potassium Level 4.0 mmol/L (3.5-5.1) 12/03/21 13:30 12/03/21 Chloride Level 102 mmol/L (98-107) 12/03/21 13:30 12/03/21 Carbon Dioxide Level 26.3 mmol/L (21.0-32.0) 12/03/21 13:30 12/03/21 Blood Urea Nitrogen 19 mg/dL (7-18) H 12/03/21 13:30 12/03/21 Creatinine 1.2 mg/dL (0.70-1.30) 12/03/21 13:30 12/03/21 Estimated GFR/1.73 m2 59.86 (mL/min/1.73m2) 12/03/21 13:30 12/03/21 Calcium Level 10.4 mg/dL (8.5-10.1) H 12/03/21 13:30 12/03/21 Glucose Level 177 mg/dL (74-106) H 12/03/21 13:30 12/03/21 Hemoglobin A1c 7.6 % (<5.7) H 12/03/21 13:30 12/03/21 Liver Function Panel: No Data to Display Coagulation Panel: No Data to Display Cardiac Panel: No Data to Display Arterial Blood Gas: No Data to Display Venous Blood Gas: No Data to Display Pancreas Panel: No Data to Display Thyroid Panel: No Data to Display Infectious Disease: Coronavirus (COVID-19)(PCR) Negative (Negative) 12/27/21 11:16 12/27/21 Coronavirus 2019 Source Nasal/Nares 12/27/21 11:16 12/27/21 Blood Cultures: No Data to Display Toxicology Panel: No Data to Display Anesthesia Assessment and Plan Anesthesia History Personal History: No History of Anesthesia Complications Family History: No Family History of Anesthesia Complications Exercise Tolerance Exercise Tolerance: Metabolic Equivalents>4 Pertinent Negatives Pertinent Negatives: No Symptoms of GERD, No Major Cardiovascular Symptoms or Complaints, No Major Pulmonary Symptoms or Complaints (Smoker 1 - 1.5 ppd x 55years) and No History of CVA/TIA Cardiac & Pulmonary Exam Cardiac Exam: Normal S1/S2 Heart Sounds Pulmonary Exam: Clear Bilateral Breath Sounds Implantable Cardiac Device Does patient have a Pacemaker or an ICD?: No Airway Exam Known Difficult Airway: No Mallampati Class: 2 Mouth Opening: Normal (> 3cm) Thyromental Distance: Greater than 3 cm Neck Range of Motion: Full ROM Neck Circumference: Normal Teeth Condition: Edentulous ASA Classification ASA Score: ASA 2 Emergency Case?: No NPO Status NPO Status: NPO Clears >2 hours, Solids >8 hours Anesthesia Plan Resuscitation Status: Full Code Anesthesia Technique: General Anesthesia Airway Planned: Natural Airway Monitors Used: Standard Monitors
[2021-12-30 11:54] VITALS: BMI 26.0
[2021-12-30] MEDS: Lactated Ringers 1,000 ML 80 ML IV (12:03)
--- NOTE | 2021-12-30 12:38 | BOWEL_PTH ---
PATIENT: Enoch Valle LOC: [facility] U#:[id number] AGE/SX: 71/M ROOM: RE12/30/[address]: Vanita Yuan MD : 1950 BED: DIS: 12/30/2021 SPEC #: [id number] RECD: 12/30/21 16:55 STATUS: GALLO RE #: [id number] TERESA: 12/30/21 12:[address]: Vanita Yuan DEPT: Surgical Specimen RECD BY: Christianne Nieves ENTERED: 12/30/21 16:55 SP TYPE: Bowel OTHR DR: Lacho Rodney Tissues: 1 - BIOPSY BOWEL 2 - BIOPSY BOWEL 3 - BIOPSY BOWEL 4 - BIOPSY BOWEL 5 - BIOPSY BOWEL Procedures: GROSS AND MICRO LEVEL 4 Comments: [id number]
[2021-12-30 13:04] VITALS: BP 116/75; PULSE 83; RESP 20; TEMP 36.4; O2SAT 93
--- NOTE | 2021-12-30 13:06 | W.ANESPOSTOP ---
Postoperative Evaluation Date, Time and Location Date Performed: 12/30/21 Time Performed: 13:06 Patient Location: Day Surgery Unit Vital Signs Most Recent Imported Vital Signs: Most Recent Vital Signs Temp Pulse Resp BP Pulse Ox 36.6 C 90 20 160/90 H 96 12/30/21 11:29 12/30/21 11:29 12/30/21 11:29 12/30/21 11:29 12/30/21 11:29 Most Recent Manually Entered Vital Signs: Adult Blood Pressure: 116/75 Heart Rate: 85 Respirations: 10 Oxygen Saturation (%): 94 Temperature (C): 36.5 C Pain Score (0-10 Scale): 0 Pain Score Most Recent Pain Score: Most Recent Pain Score Pain Level 0 12/30/21 11:29 Assessment Mental Status: Awake (Alert & Oriented to Patient Baseline) Airway and Respiratory Function: Patent airway with normal (patient baseline) respiratory exam Cardiovascular Function: Hemodynamically Stable Hydration Status: Adequately Hydrated Nausea & Vomiting: No Nausea or Vomiting Pain: Pt. Denies Any Pain Peripheral Nerve Block: Patient did not receive a nerve block
[2021-12-30 13:07] VITALS: BP 116/75; PULSE 85; RESP 10; TEMPC 36.5; O2SAT 94
[2021-12-30 13:33] VITALS: BP 123/82; PULSE 87; RESP 20; TEMP 36.3; O2SAT 95
[2021-12-30 13:55] VITALS: BP 133/79
== END 2021-12-30 14:32 | disposition home or self-care (01) ==
LOC: SUR 11:02
PROVIDERS: PCP Family Medicine; Visit Provider Surgery
PROC: 0DJD8ZZ Inspection of Lower Intestinal Tract, Via Natural or Artificial Opening Endoscopic (ICD-10-PCS; CPT 45378; principal; 2021-12-30 11:15)
DX: Z12.11 Encounter for screening for malignant neoplasm of colon (principal); K63.5 Polyp of colon; K57.30 Diverticulosis of large intestine without perforation or abscess without bleeding; K63.89 Other specified diseases of intestine
CPT/HCPCS: 45380; 88305; J2001

== ENCOUNTER 2022-08-15 16:43 | Emergency (ER) | payer MEDICARE, SELFPAY ==
[2022-08-15 16:46] VITALS: BP 163/106; PULSE 106; RESP 18; TEMP 36.6; O2SAT 95
--- NOTE | 2022-08-15 17:46 | ED.GENADUL_ITS ---
Discharge Plan Disposition Patient Disposition: Home Condition: Stable Discharge Details Clinical Impression: Laceration of right thumb Primary Care Provider: Mitesh Cortez ED Provider: Isamar Gary Home Meds and New Rx's Prescriptions: Continued amlodipine 5 mg tablet 5 mg PO DAILY Qty: 90 3RF ICaps AREDS 7,160-113-100 [id number]-gu-rtph tablet,delayed release (DR/EC) 1 tab PO BID (DME) OneTouch Verio test strips Strip See Dose Instructions .ROUTE .MEDSUPPLY Qty: 100 3RF Dose Instruction: As directed Rx Instructions: once daily; E11.9 (DME) blood-glucose meter [OneTouch UltraMini] 1 EACH kit 1 ea Miscellaneous ONCE Qty: 1 Rx Instructions: Dx 250.00 TEST STRIPS 1 EACH strip 1 ea Miscellaneous once daily Qty: 100 3RF Rx Instructions: dx 250.00 (DME) blood-glucose meter [OneTouch Verio Meter] Misc See Rx Instructions .ROUTE .MEDSUPPLY Qty: 1 1RF Rx Instructions: test bid (DME) lancets 28 gauge misc 1 ea Miscellaneous DAILY Qty: 100 4RF Rx Instructions: DX 250.00 simvastatin 40 mg tablet 40 mg PO DAILY Qty: 90 3RF lisinopril 20 mg tablet 20 mg PO DAILY Qty: 90 3RF metformin 500 mg tablet 500 mg PO BID Qty: 180 3RF hydrochlorothiazide 25 mg tablet 25 mg PO DAILY Discharge Instructions Instructions: Laceration (ED), Skin Adhesive Care (ED) Additional Instructions: Do not scrub. T tissue adhesive, will start to slough off on its own in approximately 4 to 6 days. Change the dressing once a day. Try to keep clean and dry. No soaking. Return to the ER for any signs of infection such as red streaks, drainage or swelling. Keep covered while working. Allowed to air dry at least 2 hours a day. Referrals: Mitesh Cortez MD [Primary Care Provider] - 2 weeks Discharge Data Discharge Date/Time-TO BE ENTERED AT DEPARTURE: 08/15/22 18:07 Medical Decision Making Laceration cleaned with sterile saline and chlorhexidine Dermabond applied to the laceration and 2 Steri-Strips. I did discuss that the flap may fall off and not reattach,. he verbalized understanding. Will place tube gauze dressing. Patient given Tdap booster here in the department. Sign Out No HPI General Mode of arrival: ambulatory . Date/Time Provider Initiated Documentation: 08/15/22 16:56 . Limitations to Documentation: no limitations . Information obtained by: patient, RN notes reviewed and old records reviewed . HPI Narrative: 71-year-old male presents to the ER with chief complaint of right thumb laceration which occurred this afternoon approximately 2 to 3 hours prior to arrival. Patient reports that he had a hard time getting it to stop bleeding. Bleeding is controlled upon arrival. Last tetanus vaccine was 2011. Approxima tely 7 mm laceration with flap. Range of motion is intact distal sensation intact. No other injuries or complaints. Related Data Home Medications Medication Instructions Recorded Confirmed blood-glucose meter (OneTouch ##1 05/31/13 05/13/22 UltraMini kit) blood sugar diagnostic (OneTouch #100 ea 12/11/20 05/13/22 Verio test strips) blood-glucose meter (OneTouch #1 ea 12/17/20 05/13/22 Verio Meter) lancets 28 gauge #100 ea 12/19/20 05/13/22 amlodipine 5 mg tablet 5 mg PO DAILY #90 tabs 12/03/21 08/15/22 vit A 7,160 unit-C 113 mg-E 100 1 tab PO BID 12/20/21 08/15/22 [id number]-ovhpbs tablet,delayed rel. (ICaps AREDS) lisinopril 20 mg tablet 20 mg PO DAILY #90 tab-caps 04/02/22 08/15/22 metformin 500 mg tablet 500 mg PO BID #180 tab-caps 04/02/22 08/15/22 simvastatin 40 mg tablet 40 mg PO DAILY #90 tab-caps 04/02/22 08/15/22 hydrochlorothiazide 25 mg tablet 25 mg PO DAILY 08/15/22 08/15/22 Previous Rx's Medication Instructions Recorded blood sugar diagnostic (OneTouch #100 ea 12/11/20 Verio test strips) blood-glucose meter (OneTouch #1 ea 12/17/20 Verio Meter) lancets 28 gauge #100 ea 12/19/20 amlodipine 5 mg tablet 5 mg PO DAILY #90 tabs 12/03/21 lisinopril 20 mg tablet 20 mg PO DAILY #90 tab-caps 04/02/22 metformin 500 mg tablet 500 mg PO BID #180 tab-caps 04/02/22 simvastatin 40 mg tablet 40 mg PO DAILY #90 tab-caps 04/02/22 Allergies Allergy/AdvReac Type Severity Reaction Status Date / Time aspirin AdvReac Mild upset Verified 08/15/22 16:53 stomach, 325 mg General Stated Complaint: Laceration VIVIEN: 4 Review of Systems All systems reviewed & are unremarkable except as noted in HPI and below Integumentary/Breasts Skin/Breast: Reports as per HPI and Reports wounds PFSH All Active Problems Laceration of right thumb (Acute) Umbilical hernia (Acute) Hyperplastic colon polyp (Acute) Serrated adenoma of colon (Acute) 12/2021, due 2026 Left inguinal hernia (Acute) Right leg swelling (Acute) Diabetic retinopathy (Acute ~01/2021) SHIPPEE (MILD IN LEFT EYE) Diabetes mellitus (Acute 01/21/13) Essential hypertension (Acute 10/31/13) Hyperlipidemia (Acute 01/21/13) Smoker (Acute) Medical History Incisional hernia Sciatica (11/16/15) Unspecified dental caries Urinary retention Surgical History History of colonoscopy (~12/2021) History of removal of cyst spine Hx of cataract surgery Hx of cholecystectomy S/P laparoscopic hernia repair (~07/10/20) umbilical hernia- Dr. Warren Family History Mother , 82 No problems noted. Father , 72 No problems noted. Social History Smoking/Tobacco Use Status: Current every day Tobacco Type: cigarettes Tobacco: How many years used: 54 Smoking risk assessment performed?: Yes Alcohol Intake: current Alcohol Intake frequency: a few times a week Alcohol type: beer Details: Average of 8 beers/day Drug use: Never Substance use type: does not use Household members: significant other and friend(s) Communication Needs: None Do you need help understanding health information?: Rarely Pets and animals: Yes Pets and animals: dog(s) Sexually active: No Do you think of yourself as: straight/heterosexual Current gender identity: male What is your relationship status?: living with partner How often do you talk on the phone with friends or family?: three or more times per week How often do you get together with friends or relatives?: twice per week How often do you attend christianity or anabaptist services?: decline to answer Do you belong to any clubs or organized social groups?: no Panel score (0-1 are the most socially isolated patients): 2 What type of physical activity do you participate in: walking Duration: 15-30 minutes/day Frequency: daily Fela/Judaism: Mosque Special fela needs: No Do you feel safe at home: Yes Do you feel safe in your relationship?: Yes Additional Social history: Has a room mate Exam Extrem Right upper extremity: hand Details: normal capillary refill and laceration thumb palmar aspect distal Details: irregular and flap Hand/finger images: 1. Presently 7 L laceration lab noted, he is controlled on initial presentation. Distal CMS intact. Full range of motion. Course Vital Signs Vital signs: Vital Signs Temperature 36.6 C 08/15/22 16:46 Pulse 106 H 08/15/22 16:46 Respiratory Rate 18 08/15/22 16:46 Blood Pressure 163/106 H 08/15/22 16:46 Pulse Oximetry 95 08/15/22 16:46 Temperature 36.6 C 08/15/22 16:46 Temperature Source Skin 08/15/22 16:46 Pulse 106 H 08/15/22 16:46 Respiratory Rate 18 08/15/22 16:46 Respiratory Effort 08/15/22 16:56 Blood Pressure 163/106 H 08/15/22 16:46 Blood Pressure Position Sitting 08/15/22 16:46 Pulse Oximetry 95 08/15/22 16:46 Oxygen Delivery Method Room Air 08/15/22 16:46 Oxygen Flow Rate 0 08/15/22 16:46 Pain Level 2 08/15/22 16:46 Comment 08/15/22 16:46
== END 2022-08-15 18:07 | disposition home or self-care (01) ==
PROVIDERS: Emergency Provider Registered Nurse Emergency; PCP Family Medicine
DX: S61.011A Laceration without foreign body of right thumb without damage to nail, initial encounter (principal); Z23 Encounter for immunization; X58.XXXA Exposure to other specified factors, initial encounter
CPT/HCPCS: 12001; 90471; 99281; 99282

== ENCOUNTER 2022-10-02 04:07 | Outpatient (CLI) | payer MEDICARE, SELFPAY ==
[2022-10-02 12:29] LABS: HCT 37.8 % (40.0-50.0); HGB 13.1 g/dL (13.5-17.5); MCH 31.1 pg (27.0-33.0); MCHC 34.7 % (32.0-36.0); MCV 90 fL (80-95); MPV 10.4 fL (8.0-11.0); Platelet Count 277 10^3/uL (130-400); RBC 4.21 10^6/uL (4.36-5.78); RDW 12.5 % (11.8-14.1); RDW-SD 40.7 fL; WBC 7.37 10^3/uL (4.4-10.8)
[2022-10-02 14:01] LABS: Hemoglobin A1C 8.4 % (<5.7)
== END 2022-10-02 04:08 | disposition home or self-care (01) ==
LOC: LOS 04:07
PROVIDERS: PCP Family Medicine; Visit Provider Family Medicine
DX: R53.83 Other fatigue (principal); R73.9 Hyperglycemia, unspecified
CPT/HCPCS: 36415; 85027; 83036

== ENCOUNTER 2022-11-06 13:48 | Outpatient (REF) | payer MEDICARE, SELFPAY ==
[2022-11-06 22:01] LABS: COMMENT (LAB VIEW ONLY) 35.59 mg/dL; Microalb ug/mg Crea 32.3 ug/mg Cr
== END 2022-11-06 13:49 | disposition home or self-care (01) ==
LOC: LBN 13:48
PROVIDERS: PCP Family Medicine; Visit Provider Family Medicine
DX: E11.9 Type 2 diabetes mellitus without complications (principal)
CPT/HCPCS: 82043; 82570

== ENCOUNTER 2023-09-17 00:57 | Outpatient (CLI) | payer MEDICARE, SELFPAY ==
[2023-09-17 12:07] LABS: CREATININE 1.4 mg/dL (0.70-1.30); Potassium 4.3 mmol/L (3.5-5.1)
[2023-09-17 14:51] LABS: Lab Add On Test DONE
[2023-09-17 16:11] LABS: Calculated LDL 50 mg/dL (<100); Cholesterol 129 mg/dL (<200); HDL Cholesterol 52 mg/dL (40-60); Triglyceride 136 mg/dL (<150)
== END 2023-09-17 00:58 | disposition home or self-care (01) ==
LOC: LBO 00:57
PROVIDERS: PCP Family Medicine; Visit Provider Family Medicine
DX: E11.51 Type 2 diabetes mellitus with diabetic peripheral angiopathy without gangrene (principal); I10 Essential (primary) hypertension; E78.5 Hyperlipidemia, unspecified
CPT/HCPCS: 36415; 80061; 82565; 83036; 84132

== ENCOUNTER 2024-07-30 14:28 | Emergency (ER) | payer MEDICARE, SELFPAY ==
[2024-07-30 14:29] VITALS: BP 134/90; PULSE 96; RESP 14; TEMP 36.6; O2SAT 97
[2024-07-30 14:36] VITALS: BP 134/90; PULSE 96; RESP 14; TEMP 36.6; O2SAT 97
--- NOTE | 2024-07-30 14:41 | ED.GENADUL_ITS ---
Discharge Plan Disposition Patient Disposition: Home Condition: Stable Discharge Details Clinical Impression: Olecranon bursitis, left elbow Primary Care Provider: Mitesh Cortez ED Provider: Jarett [place] [facility] Meds and New Rx's Prescriptions: Continued ICaps AREDS 7,160-113-100 baft-[id number] tablet,delayed release (DR/EC) 1 tab PO BID amlodipine 5 mg tablet 5 mg PO DAILY Qty: 90 3RF Jardiance 10 mg tablet 10 mg PO DAILY Qty: 90 3RF lisinopril 20 mg tablet 20 mg PO DAILY Qty: 90 3RF simvastatin 40 mg tablet 40 mg PO DAILY Qty: 90 3RF hydrochlorothiazide 25 mg tablet 25 mg PO DAILY Qty: 90 3RF (DME) OneTouch Verio test strips Strip See Dose Instructions .ROUTE .MEDSUPPLY Qty: 100 3RF Dose Instruction: As directed Rx Instructions: once daily; E11.9 (DME) blood-glucose meter [OneTouch UltraMini] 1 EACH kit 1 ea Miscellaneous ONCE Qty: 1 Rx Instructions: Dx 250.00 TEST STRIPS 1 EACH strip 1 ea Miscellaneous once daily Qty: 100 3RF Rx Instructions: dx 250.00 (DME) blood-glucose meter [OneTouch Verio Meter] Misc See Rx Instructions .ROUTE .MEDSUPPLY Qty: 1 1RF Rx Instructions: test bid (DME) lancets 28 gauge misc 1 ea Miscellaneous DAILY Qty: 100 4RF Rx Instructions: DX 250.00 metformin 500 mg tablet See Rx Instructions .ROUTE .COMPLEX Qty: 360 3RF Dose Instruction: TAKE TWO TABLETS BY MOUTH TWICE A DAY Rx Instructions: TAKE TWO TABLETS BY MOUTH TWICE A DAY Discharge Instructions Instructions: Bursitis ED Additional Instructions: If not improving within a week follow-up with your primary care provider If you feel more ill or develop new symptoms such as severe pain or fevers return to the emergency department for reevaluation. HPI General Mode of arrival: ambulatory . Date/Time Provider Initiated Documentation: 07/30/24 14:29 . Limitations to Documentation: no limitations . Information obtained by: patient . History of Present Illness 73 year old M presents to the emergency department with the chief complaint of left elbow swelling, described as mild, Patient started experiencing this hour(s) (2) and it has been constant. No relieving factors improve symptom(s), No exacerbating factors reported . Patient notes no other symptoms.. Patient did receive the following treatments prior to arrival, none Related Data Home Medications ?Medication ?Instructions ?Recorded ?Confirmed blood-glucose meter (OneTouch ##1 05/31/13 07/30/24 UltraMini kit) blood sugar diagnostic (OneTouch #100 ea 12/11/20 07/30/24 Verio test strips) blood-glucose meter (OneTouch #1 ea 12/17/20 07/30/24 Verio Meter) lancets 28 gauge #100 ea 12/19/20 07/30/24 vit A 7,160 unit-C 113 mg-E 100 1 tab PO BID 12/20/21 07/30/24 gkhu-srri-hucbbj tablet,delayed rel. (ICaps AREDS) amlodipine 5 mg tablet 5 mg PO DAILY #90 tabs 09/23/23 07/30/24 empagliflozin 10 mg tablet 10 mg PO DAILY #90 tabs 09/23/23 07/30/24 (Jardiance) hydrochlorothiazide 25 mg tablet 25 mg PO DAILY #90 tabs 09/23/23 07/30/24 lisinopril 20 mg tablet 20 mg PO DAILY #90 tab-caps 09/23/23 07/30/24 simvastatin 40 mg tablet 40 mg PO DAILY #90 tab-caps 09/23/23 07/30/24 metformin 500 mg tablet See Rx Instructions .Route 06/27/24 07/30/24 .COMPLEX #360 tabs Previous Rx's ?Medication ?Instructions ?Recorded blood sugar diagnostic (OneTouch #100 ea 12/11/20 Verio test strips) blood-glucose meter (OneTouch #1 ea 12/17/20 Verio Meter) lancets 28 gauge #100 ea 12/19/20 amlodipine 5 mg tablet 5 mg PO DAILY #90 tabs 09/23/23 empagliflozin 10 mg tablet 10 mg PO DAILY #90 tabs 09/23/23 (Jardiance) hydrochlorothiazide 25 mg tablet 25 mg PO DAILY #90 tabs 09/23/23 lisinopril 20 mg tablet 20 mg PO DAILY #90 tab-caps 09/23/23 simvastatin 40 mg tablet 40 mg PO DAILY #90 tab-caps 09/23/23 metformin 500 mg tablet See Rx Instructions .Route 06/27/24 .COMPLEX #360 tabs Allergies Allergy/AdvReac Type Severity Reaction Status Date / Time aspirin AdvReac Mild upset Verified 07/30/24 14:32 stomach, 325 mg General Stated Complaint: Cellulitis VIVIEN: 3 Review of Systems All systems reviewed & are unremarkable except as noted in HPI and below Constitutional Constitutional: Denies chills, Denies fever(s) and Denies weakness Cardiovascular Cardiovascular: Denies chest pain and Denies dyspnea Respiratory Respiratory: Denies cough and Denies dyspnea Gastrointestinal Gastrointestinal: Denies abdominal pain, Denies nausea and Denies vomiting Neurologic Neurologic: Denies weakness Exam Const General: no acute distress Orientation: alert HENMT Head: normal to inspection Ears: external ears normal General nose exam: external nose normal Mouth: moist mucous membranes Eyes General: appearance normal, both eyes and all related structures Neck Neck: normal visual inspection Resp Effort & Inspection: normal respiratory effort and able to speak in complete sentences Cardio Rate: regular rate Skin General skin exam: no rashes or lesions noted Neuro General: patient alert and patient oriented x3 Extrem General: full ROM and capillary refill normal Psych Mental Status: mental status grossly normal Course Vital Signs Vital signs: Vital Signs Temperature 36.6 C 07/30/24 14:29 Pulse 96 H 07/30/24 14:29 Respiratory Rate 14 07/30/24 14:29 Blood Pressure 134/90 07/30/24 14:29 Pulse Oximetry 97 07/30/24 14:29 Temperature 36.6 C 07/30/24 14:36 Temperature Source Oral 07/30/24 14:36 Pulse 96 H 07/30/24 14:36 Respiratory Rate 14 07/30/24 14:36 Respiratory Effort Normal, Non-Labored 07/30/24 14:33 Blood Pressure 134/90 07/30/24 14:36 Blood Pressure Position Sitting 07/30/24 14:36 Pulse Oximetry 97 07/30/24 14:36 Oxygen Delivery Method Room Air 07/30/24 14:36 Oxygen Flow Rate 0 07/30/24 14:36 Pain Level 0 07/30/24 14:36 Medical Decision Making 73-year-old male with a history of hypertension, diabetes comes in with swelling of his left elbow. He says that he woke up feeling fell and then this afternoon he noticed swelling behind his left elbow so came here for evaluation. He denies any pain, no fevers, he states otherwise he feels well. He has swelling of the left olecranon bursa consistent with bursitis. There is no erythema, no tenderness, no warmth. He has full range of motion of the elbow. Suspect a septic bursitis given lack of erythema, tenderness or warmth do not feel treatment for septic bursitis indicated. Will have him use an Walt wrap and fol low-up with his PCP if not improving, return precautions given Differential Diagnosis Differential Diagnosis: Bursitis, septic bursitis Quality:SDOH Health Related Social Needs: No Data to Display PFSH All Active Problems Olecranon bursitis, left elbow (Acute) Excessive drinking alcohol (Acute) Umbilical hernia (Acute) Hyperplastic colon polyp (Acute) Serrated adenoma of colon (Acute) 12/2021, due 2026 Left inguinal hernia (Acute) Right leg swelling (Acute) Diabetic retinopathy (Acute ~01/2021) SHIPPEE (MILD IN LEFT EYE) Diabetes mellitus (Acute 01/21/13) Essential hypertension (Acute 10/31/13) Hyperlipidemia (Acute 01/21/13) Smoker (Acute) cessation: 03/15/2024 Medical History Urinary retention Incisional hernia Unspecified dental caries Sciatica (11/16/15) Surgical History History of colonoscopy (~12/2021) Hx of cataract surgery S/P laparoscopic hernia repair (~07/10/20) umbilical hernia- Dr. Warren History of removal of cyst spine Hx of cholecystectomy Family History Mother , 82 No problems noted. Father , 72 No problems noted. Social History Smoking/Tobacco Use Status: Current every day Tobacco Type: cigarettes Tobacco: How many years used: 54 Smoking risk assessment performed?: Yes Alcohol Intake: current Alcohol Intake frequency: a few times a week Alcohol type: beer Details: Average of 8 beers/day Drug use: Never Substance use type: does not use Details: Pt states he drinks a 6-pack daily 07/30/24 Household members: significant other and friend(s) Communication Needs: None Do you need help understanding health information?: Rarely Pets and animals: Yes Pets and animals: dog(s) Sexually active: No Do you think of yourself as: straight/heterosexual Current gender identity: male What is your relationship status?: living with partner How often do you talk on the phone with friends or family?: three or more times per week How often do you get together with friends or relatives?: twice per week How often do you attend amish or advent services?: decline to answer Do you belong to any clubs or organized social groups?: no Panel score (0-1 are the most socially isolated patients): 2 What type of physical activity do you participate in: walking Duration: 15-30 minutes/day Frequency: daily Fela/Spiritism: Church Special fela needs: No Do you feel safe at home: Yes Do you feel safe in your relationship?: Yes Additional Social history: Has a room mate PAWSS Have you Been Recently Intoxicated or Drunk Within the Last 30 days?: No Have you Ever Experienced Previous Episodes of Alcohol Withdrawal?: No Have you ever Experienced Withdrawal Seizures?: No Have you ever Experienced Delirium Tremens(DT)s?: No Have you ever undergone Alcohol Rehabilitation Treatment (i.e, inpt ot outpatient treatment programs)?: No Have you ever Experienced Blackouts?: No Have you ever Combined Alcohol with other Downers within the last 90 days?: No Have you ever Combined Alcohol with any other Substance of Abuse during the last 90 days?: No Positive Blood Alcohol level on Presentation? [PCS.BAL]: Unable to Obtain Evidence of Increased Autonomic Activity (i.e. HR>120, tremor, sweating, agitation, nausea)?: No Result: 0
== END 2024-07-30 14:51 | disposition home or self-care (01) ==
LOC: ER 14:45
PROVIDERS: Emergency Provider Emergency Medicine; PCP Family Medicine
DX: M70.22 Olecranon bursitis, left elbow (principal); E11.9 Type 2 diabetes mellitus without complications; I10 Essential (primary) hypertension; E78.5 Hyperlipidemia, unspecified; F17.210 Nicotine dependence, cigarettes, uncomplicated; Z79.84 Long term (current) use of oral hypoglycemic drugs
CPT/HCPCS: 99283

== ENCOUNTER 2024-08-17 13:45 | Emergency (ER) | payer MEDICARE, SELFPAY ==
[2024-08-17 13:48] VITALS: BP 129/86; PULSE 97; RESP 16; TEMP 36.3; O2SAT 95
[2024-08-17 14:22] VITALS: BP 129/86; PULSE 97; RESP 16; TEMP 36.3; O2SAT 95
--- NOTE | 2024-08-17 14:26 | ED.GENADUL_ITS ---
Discharge Plan Disposition Patient Disposition: Home Condition: Stable Discharge Details Clinical Impression: Olecranon bursitis, left elbow Primary Care Provider: Mitesh Cortez ED Provider: Liberty Travis Home Meds and New Rx's Prescriptions: No Action ICaps AREDS 7,160-113-100 cgmt-qj-txee tablet,delayed release (DR/EC) 1 tab PO BID amlodipine 5 mg tablet 5 mg PO DAILY Qty: 90 3RF Jardiance 10 mg tablet 10 mg PO DAILY Qty: 90 3RF lisinopril 20 mg tablet 20 mg PO DAILY Qty: 90 3RF simvastatin 40 mg tablet 40 mg PO DAILY Qty: 90 3RF hydrochlorothiazide 25 mg tablet 25 mg PO DAILY Qty: 90 3RF (DME) OneTouch Verio test strips Strip See Dose Instructions .ROUTE .MEDSUPPLY Qty: 100 3RF Dose Instruction: As directed Rx Instructions: once daily; E11.9 (DME) blood-glucose meter [OneTouch UltraMini] 1 EACH kit 1 ea Miscellaneous ONCE Qty: 1 Rx Instructions: Dx 250.00 TEST STRIPS 1 EACH strip 1 ea Miscellaneous once daily Qty: 100 3RF Rx Instructions: dx 250.00 (DME) blood-glucose meter [OneTouch Verio Meter] Misc See Rx Instructions .ROUTE .MEDSUPPLY Qty: 1 1RF Rx Instructions: test bid (DME) lancets 28 gauge misc 1 ea Miscellaneous DAILY Qty: 100 4RF Rx Instructions: DX 250.00 metformin 500 mg tablet See Rx Instructions .ROUTE .COMPLEX Qty: 360 3RF Dose Instruction: TAKE TWO TABLETS BY MOUTH TWICE A DAY Rx Instructions: TAKE TWO TABLETS BY MOUTH TWICE A DAY Discharge Instructions Instructions: Olecranon Bursitis (DC) Additional Instructions: You were seen in the emergency department today for evaluation of swelling of the elbow bursa, and had a workup to evaluate for infection. Reassuringly, there was no evidence of infection in the fluid that we took out of your elbow. This withdrawal of fluid will not entirely resolve the swelling and it is likely that the fluid will reaccumulate. It is very important that you keep this area clean to prevent infection inside the elbow. You do not need to take antibiotics, the fluid was sent for culture and if anything grows you will be contacted by phone. Please continue to use ibuprofen for management of pain and swelling, and continue to wear your Walt bandage during the day for compression. You need to follow-up with your primary care provider in the next few days to discuss this visit and any symptoms that change, worsen, or persist. Thank you for allowing us to be part of your care Discharge Data Discharge Date/Time-TO BE ENTERED AT DEPARTURE: 08/17/24 15:50 HPI General Mode of arrival: ambulatory . Date/Time Provider Initiated Documentation: 08/17/24 13:48 . Limitations to Documentation: no limitations . Information obtained by: patient, family and old records reviewed . HPI Narrative: HPI: This is a 73-year-old male patient with a past medical history significant for diabetes, hyperlipidemia, hypertension, and a diagnosis of olecranon bursitis 2 or 3 weeks ago presenting for evaluation of ongoing elbow swelling. The patient reports that since that time he has been using his Walt wrap diligently to provide daytime compression. He has been avoiding leaning on his elbow, but states that the swelling has continued to worsen, and is causing him discomfort because he keeps bumping his elbow on things and irritating the bursa sac. The patient reports that he has not noted any pain in the elbow joint itself, has full range of motion of his elbow, and has not had fevers or chills. He has otherwise been in his normal state of health and has been taking all of his home medications as prescribed. Exam: Gen: Awake and alert, in no apparent distress HEENT: Non-icteric sclera Neck: Supple Lungs: No apparent respiratory distress, normal respiratory effort. CV: Appears well perfused, strong distal pulses Abdomen: Non-distended MSK: Moves 4 extremities without apparent limitation in ROM. The patient has no tenderness to palpation around the elbow joint on the affected left side. The patient's olecranon bursa is large and swollen to approximately 8 cm, with mild overlying skin redness but no significant warmth or tenderness to palpation, no overlying skin breaks or drainage. Skin: Visualized skin without rashes, cyanosis. Neuro: Normal Gait, no obvious focal deficits or facial asymmetry. Speaks in full, clear sentences. Psych: Appropriate for situation. MDM: This is a 73-year-old male patient presenting for evaluation of ongoing olecranon bursa swelling. My differential includes but is not limited to inflammatory and noninfectious olecranon bursitis, certainly considered septic bursitis especially given the failure to respond to appropriate conservative management. The patient's physical examination is not consistent with septic arthritis, and he has had no trauma or injury to suggest fracture, dislocation. The patient himself is not significantly immunocompromise the diabetes does increase his risk for infections. He does not take blood thinning medications to significantly increase his risk for hemorrhagic complications. We had a shared decision-making conversation regarding the risks and benefits of bursa aspiration, and the patient is desiring to move forward with this procedure. I do not see an indication for laboratory studies in this patient who is hemodynamically appropriate and afebrile. We will, however, send this bursa fluid for culture, Gram stain, and cell count. I do not see an indication for advanced imaging at this time. ED Course: Consent was signed and as noted below the bursa was aspirated for approximately 25 cc of bloody fluid. The patient tolerated this procedure well, and it was performed under typical sterile conditions and dressed with a pressure bandage after the fact. Gram stain was negative, cell count reveals less than 2000 WBCs, making this very unlikely to be a septic bursitis. Culture was sent, the patient does not require antibiotics at this time, and understands the need to follow-up with his primary care provider, continue ibuprofen and compressive wraps. At this time, the patient has had a full medical evaluation and is safe for discharge to home. They are hemodynamically stable, ambulatory, and tolerating PO. They are understanding of the follow-up plan and return precautions. They left our facility without incident. Liberty Travis MD Related Data Home Medications ?Medication ?Instructions ?Recorded ?Confirmed blood-glucose meter (OneTouch ##1 05/31/13 08/17/24 UltraMini kit) blood sugar diagnostic (OneTouch #100 ea 12/11/20 08/17/24 Verio test strips) blood-glucose meter (OneTouch #1 ea 12/17/20 08/17/24 Verio Meter) lancets 28 gauge #100 ea 12/19/20 08/17/24 vit A 7,160 unit-C 113 mg-E 100 1 tab PO BID 12/20/21 08/17/24 hefz-dgop-xejblq tablet,delayed rel. (ICaps AREDS) amlodipine 5 mg tablet 5 mg PO DAILY #90 tabs 09/23/23 08/17/24 empagliflozin 10 mg tablet 10 mg PO DAILY #90 tabs 09/23/23 08/17/24 (Jardiance) hydrochlorothiazide 25 mg tablet 25 mg PO DAILY #90 tabs 09/23/23 08/17/24 lisinopril 20 mg tablet 20 mg PO DAILY #90 tab-caps 09/23/23 08/17/24 simvastatin 40 mg tablet 40 mg PO DAILY #90 tab-caps 09/23/23 08/17/24 metformin 500 mg tablet See Rx Instructions .Route 06/27/24 08/17/24 .COMPLEX #360 tabs Previous Rx's ?Medication ?Instructions ?Recorded blood sugar diagnostic (OneTouch #100 ea 12/11/20 Verio test strips) blood-glucose meter (OneTouch #1 ea 12/17/20 Verio Meter) lancets 28 gauge #100 ea 12/19/20 amlodipine 5 mg tablet 5 mg PO DAILY #90 tabs 09/23/23 empagliflozin 10 mg tablet 10 mg PO DAILY #90 tabs 09/23/23 (Jardiance) hydrochlorothiazide 25 mg tablet 25 mg PO DAILY #90 tabs 09/23/23 lisinopril 20 mg tablet 20 mg PO DAILY #90 tab-caps 09/23/23 simvastatin 40 mg tablet 40 mg PO DAILY #90 tab-caps 09/23/23 metformin 500 mg tablet See Rx Instructions .Route 06/27/24 .COMPLEX #360 tabs Allergies Allergy/AdvReac Type Severity Reaction Status Date / Time aspirin AdvReac Mild upset Verified 08/17/24 13:57 stomach, 325 mg General Stated Complaint: GenMedical VIVIEN: 4 Course Vital Signs Vital signs: Vital Signs Temperature 36.3 C L 08/17/24 13:48 Pulse 97 H 08/17/24 13:48 Respiratory Rate 16 08/17/24 13:48 Blood Pressure 129/86 08/17/24 13:48 Pulse Oximetry 95 08/17/24 13:48 Temperature 36.3 C L 08/17/24 14:22 Temperature Source Oral 08/17/24 14:22 Pulse 97 H 08/17/24 14:22 Respiratory Rate 16 08/17/24 14:22 Respiratory Effort Normal, Non-Labored 08/17/24 14:22 Blood Pressure 129/86 08/17/24 14:22 Pulse Oximetry 95 08/17/24 14:22 Oxygen Delivery Method Room Air 08/17/24 14:22 Oxygen Flow Rate 0 08/17/24 14:22 Pain Level 0 08/17/24 14:22 Lab/Test Results Lab/Test Results: 08/17/24 14:06 Bursa Body Fluid Culture - Pending 08/17/24 14:06 Bursa Gram Stain - Pending Procedures Bursa Procedures Time Out Performed: No Side of body: left Site of Procedure: olecranon bursa XRAY Obtained: none Antisepsis Used: Chlorhexidine Local Anesthetic: Lidocaine 2% and with Epi Amount of anesthesia used (mL): 1 Fluid obtained (mL): 25 Fluid Type: bloody Patient Tolerated Procedure: well and no complications Complications: none Medical Decision Making Quality:SDOH Health Related Social Needs: No Data to Display PFSH All Active Problems Olecranon bursitis, left elbow (Acute) Excessive drinking alcohol (Acute) Umbilical hernia (Acute) Hyperplastic colon polyp (Acute) Serrated adenoma of colon (Acute) 12/2021, due 2026 Left inguinal hernia (Acute) Right leg swelling (Acute) Diabetic retinopathy (Acute ~01/2021) SHIPPEE (MILD IN LEFT EYE) Diabetes mellitus (Acute 01/21/13) Essential hypertension (Acute 10/31/13) Hyperlipidemia (Acute 01/21/13) Smoker (Acute) cessation: 03/15/2024 Medical History Urinary retention Incisional hernia Unspecified dental caries Sciatica (11/16/15) Surgical History History of colonoscopy (~12/2021) Hx of cataract surgery S/P laparoscopic hernia repair (~07/10/20) umbilical hernia- Dr. Warren History of removal of cyst spine Hx of cholecystectomy Family History Mother , 82 No problems noted. Father , 72 No problems noted. Social History Smoking/Tobacco Use Status: Current every day Tobacco Type: cigarettes Tobacco: How many years used: 54 Smoking risk assessment performed?: Yes Alcohol Intake: current Alcohol Intake frequency: a few times a week Alcohol type: beer Details: Average of 8 beers/day Drug use: Never Substance use type: does not use Details: Pt states he drinks a 6-pack daily 07/30/24 Household members: significant other and friend(s) Communication Needs: None Do you need help understanding health information?: Rarely Pets and animals: Yes Pets and animals: dog(s) Sexually active: No Do you think of yourself as: straight/heterosexual Current gender identity: male What is your relationship status?: living with partner How often do you talk on the phone with friends or family?: three or more times per week How often do you get together with friends or relatives?: twice per week How often do you attend caodaism or spiritism services?: decline to answer Do you belong to any clubs or organized social groups?: no Panel score (0-1 are the most socially isolated patients): 2 What type of physical activity do you participate in: walking Duration: 15-30 minutes/day Frequency: daily Fela/Spiritism: Evangelical Special fela needs: No Do you feel safe at home: Yes Do you feel safe in your relationship?: Yes Additional Social history: Has a room mate PAWSS Have you Been Recently Intoxicated or Drunk Within the Last 30 days?: No Have you Ever Experienced Previous Episodes of Alcohol Withdrawal?: No Have you ever Experienced Withdrawal Seizures?: No Have you ever Experienced Delirium Tremens(DT)s?: No Have you ever undergone Alcohol Rehabilitation Treatment (i.e, inpt ot outpatient treatment programs)?: No Have you ever Experienced Blackouts?: No Have you ever Combined Alcohol with other Downers within the last 90 days?: No Have you ever Combined Alcohol with any other Substance of Abuse during the last 90 days?: No Positive Blood Alcohol level on Presentation? [PCS.BAL]: No Evidence of Increased Autonomic Activity (i.e. HR>120, tremor, sweating, agitation, nausea)?: No Result: 0
[2024-08-17 14:50] LABS: Clarity Cloudy; Nucleated Cells 1315 uL (0)
[2024-08-17 14:53] VITALS: BP 121/75; PULSE 89; RESP 13; TEMP 36.7; O2SAT 92
[2024-08-17 14:58] LABS: Mononuclear Cells 88 %; Polynuclear Cells 12 %
== END 2024-08-17 15:50 | disposition home or self-care (01) ==
PROVIDERS: Emergency Provider Emergency Medicine; PCP Family Medicine
DX: M70.22 Olecranon bursitis, left elbow (principal); E11.69 Type 2 diabetes mellitus with other specified complication; I10 Essential (primary) hypertension
CPT/HCPCS: 20605; 99284; 87070; 87205; 89051; J2004

== ENCOUNTER 2025-04-06 16:26 | Outpatient (REF) | payer MEDICARE, SELFPAY ==
[2025-04-06 20:26] LABS: Anion Gap 8.2 mmol/L (3-11); BUN 25 mg/dL (7-18); CO2 30.8 mmol/L (21.0-32.0); Calcium 10.4 mg/dL (8.5-10.1); Chloride 96 mmol/L (98-107); Estimated GFR 57.65 (mL/min/1.73m2); Glucose 208 mg/dL (74-106); Potassium 4.4 mmol/L (3.5-5.1); Sodium 135 mmol/L (136-145)
== END 2025-04-06 16:27 | disposition home or self-care (01) ==
LOC: NCHCN 16:26
PROVIDERS: PCP Family Medicine; Visit Provider Family Medicine
DX: I10 Essential (primary) hypertension (principal); E11.9 Type 2 diabetes mellitus without complications
CPT/HCPCS: 80048